=== PATIENT | male | born 1960 | race Caucasian/White ===

== ENCOUNTER 2023-03-20 19:38 | Emergency (ER) | payer MEDICARE, MEDICAID, SELFPAY ==
[2023-03-20] VITALS (7 sets, daily range): BP systolic 128–135; BP diastolic 86–100; PULSE 102–131; RESP 11–38; TEMP 36.2–36.4; O2SAT 95–97; BMI 22.1
[2023-03-20 20:07] LABS: Absolute Lymphocyte Count 1.02 X10^3/uL (0.83-4.51); Absolute Neutrophil Count 2.8 X10^3/uL (2.0-7.7); Basophil# 0.05 X10^3/uL; Eosinophil# 0.52 X10^3/uL; Eosinophils% 10.9 % (0-5); Hematocrit 35.6 % (40-54); Hemoglobin 11.3 g/dL (13.0-16.5); Lymphocyte # 1.02 X10^3/ul (0.83-4.51); Lymphocyte % 21.3 % (19-41); Mean Corp Hgb Conc 31.7 g/dL (32-36); Mean Corpuscular Hgb 26.1 pg (27.0-32.0); Mean Corpuscular Volume 82.2 fL (80-94); Mean Platelet Vol. 8.4 fl (6.2-12.0); Monocyte# 0.37 X10^3/uL; Monocyte% 7.7 % (0-10); NRBC Flagged by Analyzer 0 % (0-5); Neutrophil # 2.81 X10^3/uL (2.7-7.7); Neutrophil % 58.9 % (47-70); Platelet Count 197 K/mm3 (150-450); RBC Distribution Width CV 19.3 % (11.6-14.6); Red Blood Count 4.33 M/mm3 (4.6-6.2); White Blood Count 4.8 K/mm3 (4.4-11.0)
--- NOTE | 2023-03-20 20:10 | RAD_ITS ---
STUDY: X-RAY CHEST REASON FOR EXAM: Male, 62 years old. Chest pain TECHNIQUE: Single AP portable view of the chest. COMPARISON: None. FINDINGS: There are surgical clips in the left supraclavicular region. The lungs are clear and expanded. There is no demonstrated pleural abnormality. Normal size heart. Normal mediastinum and power. Normal visualized pulmonary arteries. There is atherosclerotic tortuosity of the aortic arch and descending thoracic aorta. Normal visualized thoracic spine. There are chronic upper rib and clavicle fractures. There is no demonstrated abnormality of the visualized soft tissue structures of the upper abdomen. RAD/Chest 1 View (Portable) IMPRESSION: Degenerative changes, as described above. No demonstrated acute cardiopulmonary process. Electronically Signed: Oskar Husain MD at 20:27 EDT ,
[2023-03-20 20:23] LABS: Anion Gap 6 (5-15); BUN 6 mg/dL (7-18); BUN/Creat Ratio 7.1 RATIO (10-20); Calcium,Total 8.6 mg/dL (8.5-10.1); Chloride 106 mmol/L (98-107); Creatinine, Serum 0.85 mg/dL (0.70-1.30); EST Glomerular Filtration Rate 96 mL/min (>60); Est Glom Filt Rate - Afr Amer 117 mL/min (>60); Estimated Creatinine Clearance 95.75 ml/min; Glucose 99 mg/dL (74-106); Potassium 3.2 mmol/L (3.5-5.1); Sodium Level 142 mmol/L (136-145); Troponin-I HS (w/2H Reflex) 11 pg/mL (3.0-78.0)
[2023-03-20 20:29] LABS: Prothrombin Time (Protime)PT. 13.2 SECONDS (11.7-14.9)
[2023-03-20] MEDS: Ipratropium/Albuterol Sulfate 3 ML AMPUL.NEB INHALATION (20:36)
[2023-03-20] MEDS: Morphine 4 MG/ML Syringe IV (20:56)
[2023-03-20] MEDS: Rivaroxaban 20 MG Tablet PO (21:16)
[2023-03-20] MEDS: clonazePAM 0.5 MG Tablet PO (21:16)
[2023-03-20 22:03] LABS: Reflex Troponin-HS? (from REC) Y
[2023-03-20 22:04] LABS: D-Dimer Quantitative (DVT/PE) 1.05 FEU/ug/m (0.27-0.49)
[2023-03-20 22:41] LABS: Troponin-I HS 10 pg/mL (3.0-78.0)
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
--- NOTE | 2023-03-20 23:16 | CT_ITS ---
STUDY: CTA CHEST REASON FOR EXAM: Male, 62 years old. Shortness of breath, elevated d-dimer RADIATION DOSAGE (If Supplied By Facility): CTDIvol = ( 14.29 ) mGy, DLP = ( 516.33 ) mGycm TECHNIQUE: The examination was performed with the intravenous administration of 100mL Isovue-370. Post-processing of the angiographic images was performed, with multiplanar reformation and 3D reconstruction. Individualized dose optimization techniques were used for this CT. COMPARISON: None. FINDINGS: Normal enhancement of the main pulmonary artery and right and left pulmonary arteries. Normal enhancement of the bilateral peripheral pulmonary arteries. There is no demonstrated pulmonary embolism. 3.5 cm ectasia ascending aorta. There is no demonstrated aortic dissection. Normal heart and pericardium. Normal mediastinum. Normal hilar regions. Tracheostomy defect at the thoracic inlet. Multiple adjacent surgical clips. Bibasilar dependent and/or fibrotic changes. No consolidations or mass lesions. No pleural effusion. Normal chest wall structures. No acute or aggressive osseous abnormality. No acute findings in the upper abdomen. CT/CTA Chest W/WO Contrast IMPRESSION: Normal CTA chest examination, without a demonstrated pulmonary embolism or arterial dissection. No acute pulmonary findings. Electronically Signed: Oscar Zepeda MD at 0:13 EDT ,
[2023-03-21] VITALS (9 sets, daily range): BP systolic 83–129; BP diastolic 68–96; PULSE 85–108; RESP 13–19; O2SAT 94–96
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
--- NOTE | 2023-03-21 02:19 | ED.RN ---
Pt daughter address for cab: [address] [place] [id number]
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
== END 2023-03-21 08:42 | disposition home or self-care (01) ==
PROVIDERS: Emergency Provider Emergency Medicine; Visit Provider Emergency Medicine
DX: R07.9 Chest pain, unspecified (principal); Z93.0 Tracheostomy status; R06.02 Shortness of breath; S81.801A Unspecified open wound, right lower leg, initial encounter; S81.802A Unspecified open wound, left lower leg, initial encounter; X58.XXXA Exposure to other specified factors, initial encounter; M54.2 Cervicalgia; R11.2 Nausea with vomiting, unspecified; R05.9 Cough, unspecified; Z59.00 Homelessness unspecified; Z87.891 Personal history of nicotine dependence
CPT/HCPCS: 31720; 71045; 71275; 80048; 84484; 85025; 85379; 85610; 87070; 87205; 87428; 93005; 94640; 96374; 99285; Q9967; A4216

== ENCOUNTER 2023-03-27 16:12 | Emergency (ER) | payer MEDICARE, MEDICAID, SELFPAY ==
[2023-03-27 16:14] VITALS: BP 107/79; PULSE 74; RESP 18; TEMP 36.6; O2SAT 96; BMI 25.7
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
--- NOTE | 2023-03-27 16:47 | CM.ED ---
Addendum entered by Breanna Lozano 03/27/23 20:04: SW attempted to make an appointment with [facility] as planned but due to patient being here late in the day, no one was available to schedule appointment. SW left a voicemail with [facility] and APS worker as well. Pt is historically non-compliant and uncooperative while a patient. Pt was verbally abusive to nursing staff. Pt also had denied alcohol use but was found to be intoxicated upon lab results. Hospital admission not necessary and patient is to follow-up with [facility]/APS. Breanna DELUCA, RECEPTIONIST NURSE Original Note: Social Work SW received call from Lee of APS this morning regarding patient coming to the ED. Pt has been non-compliant and APS has been involved. APS reports concerns regarding patient's leg wounds and being unable to sleep due to them. APS reports they are in contact with [facility] who is familiar with patient and requests SW to schedule a follow-up appointment with [facility] and they will arrange transportation for patient. Pt arrived later in the afternoon due to PD being called on patient for public drinking. Pt to be seen medically and social work will make arrangements for appointment if patient is discharged. Breanna DELUCA, RECEPTIONIST NURSE
[2023-03-27] MEDS: 0.9% Normal Saline 1,000 ML 999 ML IV (17:41)
[2023-03-27] MEDS: LORazepam 2 MG/ML Syringe 1 MG IV (17:47)
[2023-03-27 17:59] LABS: Absolute Lymphocyte Count 1.44 X10^3/uL (0.83-4.51); Absolute Neutrophil Count 3.1 X10^3/uL (2.0-7.7); Basophil# 0.07 X10^3/uL; Basophil% 1.3 % (0-1); Eosinophil# 0.45 X10^3/uL; Eosinophils% 8.2 % (0-5); Hematocrit 37.6 % (40-54); Hemoglobin 11.5 g/dL (13.0-16.5); Lymphocyte # 1.44 X10^3/ul (0.83-4.51); Lymphocyte % 26.2 % (19-41); Mean Corp Hgb Conc 30.6 g/dL (32-36); Mean Corpuscular Hgb 26.2 pg (27.0-32.0); Mean Corpuscular Volume 85.6 fL (80-94); Mean Platelet Vol. 9.5 fl (6.2-12.0); Monocyte% 7.3 % (0-10); NRBC Flagged by Analyzer 0 % (0-5); Neutrophil # 3.13 X10^3/uL (2.7-7.7); Neutrophil % 56.8 % (47-70); POSITIVE MORPHOLOGY YES; Platelet Count 235 K/mm3 (150-450); RBC Distribution Width CV 20.8 % (11.6-14.6); RBC Distribution Width SD 64.9 fl (35.1-43.9); Red Blood Count 4.39 M/mm3 (4.6-6.2); White Blood Count 5.5 K/mm3 (4.4-11.0)
[2023-03-27 18:01] LABS: Differential Indicated SCAN CRITERIA MET
[2023-03-27 18:12] LABS: ALB/GLOB Ratio 0.6 RATIO (0.9-2.4); AST(SGOT) 98 U/L (15-37); Alanine Aminotransfer ALT/SGPT 38 U/L (16-61); Albumin, Serum 3.2 g/dL (3.2-5.0); Alkaline Phosphatase 172 U/L (45-117); Anion Gap 5 (5-15); BUN 10 mg/dL (7-18); BUN/Creat Ratio 9.8 RATIO (10-20); Calcium,Total 8.5 mg/dL (8.5-10.1); Chloride 111 mmol/L (98-107); Creatinine, Serum 1.02 mg/dL (0.70-1.30); EST Glomerular Filtration Rate 78 mL/min (>60); Est Glom Filt Rate - Afr Amer 95 mL/min (>60); Glucose 82 mg/dL (74-106); Potassium 3.8 mmol/L (3.5-5.1); Protein, Total 8.2 g/dL (6.4-8.2); Sodium Level 140 mmol/L (136-145)
[2023-03-27 18:45] LABS: Anisocytosis 1+; Crenated RBC RARE; Differential Comment SCANNED; Ovalocyte RARE
--- NOTE | 2023-03-27 19:51 | ED.RN ---
This charge nurse was notified by primary nurse that patient was refusing to leave. This RN enters the room, patient is raising his fists at me. This RN offers to call a taxi, patient states he cannot afford one. Pt states he is staying with his daughter who does not have a car. Per PD and EMS patient walks around town all day long. Pt is refusing to walk out of department. Pt threw a bloody gauze piece at this RN and then refused to let me apply a bandage. HRO and security called to bedside. Patient was agreeable to get dressed and ambulate with police. Pt left department with HRO.
--- NOTE | 2023-03-27 19:53 | ED.RN ---
pt verbally abusive to this nurse and feels states he was not leaving. pt raising his fist and threatening.charge nurse rommel nuñez made aware and she spoke to him as well. diana duran involved.
[2023-03-27 19:55] VITALS: BP 152/60; PULSE 78; RESP 18
== END 2023-03-27 19:55 | disposition home or self-care (01) ==
PROVIDERS: Nurse Practitioner; Emergency Provider Emergency Medicine; Visit Provider Emergency Medicine
DX: F10.129 Alcohol abuse with intoxication, unspecified (principal); S81.802A Unspecified open wound, left lower leg, initial encounter; S81.801A Unspecified open wound, right lower leg, initial encounter; F17.210 Nicotine dependence, cigarettes, uncomplicated; Z59.00 Homelessness unspecified; X58.XXXA Exposure to other specified factors, initial encounter
CPT/HCPCS: 80053; 82077; 85025; 96361; 96374; 99285; A4216

== ENCOUNTER 2023-03-31 21:59 | Emergency (ER) | payer MEDICARE, MEDICAID, SELFPAY ==
[2023-03-31 22:00] VITALS: BP 125/91; PULSE 111; RESP 16; TEMP 35.9; O2SAT 96; BMI 26.2
[2023-03-31 22:02] VITALS: BP 125/91; PULSE 100; RESP 18; TEMP 35.9; O2SAT 96
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
--- NOTE | 2023-03-31 23:10 | RAD_ITS ---
INDICATION: shortness of breath EXAMINATION/TECHNIQUE: X-RAY - XR Chest 1 View COMPARISON: 03/20/2023. FINDINGS: LINES/DEVICES: None. LUNGS: No consolidation or evidence of an effusion. No evidence of edema or a pneumothorax. MEDIASTINUM AND CARDIOVASCULAR STRUCTURES: Cardiac silhouette is normal in size and contour. Mediastinum is unremarkable. BONES AND SOFT TISSUES: No acute abnormality. RAD/Chest 1 View (Portable) IMPRESSION: No evidence of acute cardiopulmonary disease. Electronically Signed: Suresh Frank DO at 23:22 EDT ,
--- NOTE | 2023-03-31 23:47 | ED.RN ---
Called and spoke to dispatch and Officer Mariana to assess ambulatory status due to pt stating he could not walk. They report pt was picked up at [facility] in [facility] and was ambulatory without difficulty and smoking a cigarette.
--- NOTE | 2023-03-31 23:54 | ED.RN ---
Attempted to speak to pt about finding a ride or needing a wheelchair to the door, he repeatedly yells at nurse get the fuck out, I can't walk, get the fuck out. Informed pt that this nurse spoke to officer and that he was ambulatory on scene, he again yells at nurse get the fuck out.
== END 2023-04-01 00:04 | disposition home or self-care (01) ==
PROVIDERS: Emergency Provider Emergency Medicine; Visit Provider Emergency Medicine
DX: R06.02 Shortness of breath (principal); Z93.0 Tracheostomy status; S81.801A Unspecified open wound, right lower leg, initial encounter; S81.802A Unspecified open wound, left lower leg, initial encounter; X58.XXXA Exposure to other specified factors, initial encounter; Z85.21 Personal history of malignant neoplasm of larynx; Z87.891 Personal history of nicotine dependence
CPT/HCPCS: 31720; 71045; 99284

== ENCOUNTER 2023-04-01 10:36 | Emergency (ER) | payer MEDICARE, MEDICAID, SELFPAY ==
[2023-04-01 10:37] VITALS: BP 148/110; PULSE 107; RESP 18; TEMP 36.7; O2SAT 99; BMI 23.3
[2023-04-01 10:59] VITALS: O2SAT 98
[2023-04-01 11:47] LABS: Absolute Lymphocyte Count 1.08 X10^3/uL (0.83-4.51); Absolute Neutrophil Count 2.9 X10^3/uL (2.0-7.7); Basophil# 0.12 X10^3/uL; Basophil% 2.4 % (0-1); Eosinophil# 0.58 X10^3/uL; Eosinophils% 11.4 % (0-5); Hematocrit 37.7 % (40-54); Hemoglobin 11.8 g/dL (13.0-16.5); Lymphocyte # 1.08 X10^3/ul (0.83-4.51); Lymphocyte % 21.2 % (19-41); Mean Corp Hgb Conc 31.3 g/dL (32-36); Mean Corpuscular Hgb 26.5 pg (27.0-32.0); Mean Corpuscular Volume 84.5 fL (80-94); Mean Platelet Vol. 9.1 fl (6.2-12.0); Monocyte# 0.38 X10^3/uL; Monocyte% 7.5 % (0-10); NRBC Flagged by Analyzer 0 % (0-5); Neutrophil # 2.93 X10^3/uL (2.7-7.7); Neutrophil % 57.3 % (47-70); POSITIVE MORPHOLOGY YES; Platelet Count 264 K/mm3 (150-450); RBC Distribution Width CV 21.7 % (11.6-14.6); RBC Distribution Width SD 66.3 fl (35.1-43.9); Red Blood Count 4.46 M/mm3 (4.6-6.2); White Blood Count 5.1 K/mm3 (4.4-11.0)
[2023-04-01 11:49] LABS: Differential Indicated SCAN CRITERIA MET
[2023-04-01 11:59] LABS: Anion Gap 10 (5-15); BUN 5 mg/dL (7-18); BUN/Creat Ratio 5.1 RATIO (10-20); Calcium,Total 8.3 mg/dL (8.5-10.1); Chloride 106 mmol/L (98-107); Creatinine, Serum 0.98 mg/dL (0.70-1.30); EST Glomerular Filtration Rate 82 mL/min (>60); Est Glom Filt Rate - Afr Amer 100 mL/min (>60); Estimated Creatinine Clearance 84.68 ml/min; Glucose 82 mg/dL (74-106); Potassium 3.9 mmol/L (3.5-5.1); Sodium Level 142 mmol/L (136-145)
[2023-04-01 12:12] LABS: Anisocytosis 1+
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
[2023-04-01 13:04] VITALS: RESP 24
[2023-04-01 13:18] VITALS: RESP 24
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
--- NOTE | 2023-04-04 21:07 | CM.ED ---
Social Work SW received a message from Romana of [facility] due to a referral. Romana reports they reached out to pt's daughter whom has not answered or returned any calls. Romana reports the referral will be closed. Breanna Lozano WOODWORKING MACHINE FEEDER, LEASING DIRECTOR
== END 2023-04-01 13:19 | disposition home or self-care (01) ==
PROVIDERS: Emergency Provider Emergency Medicine; Visit Provider Emergency Medicine
DX: R06.00 Dyspnea, unspecified (principal); Z93.0 Tracheostomy status; I48.91 Unspecified atrial fibrillation; S81.801A Unspecified open wound, right lower leg, initial encounter; S81.802A Unspecified open wound, left lower leg, initial encounter; Z87.891 Personal history of nicotine dependence; Z85.89 Personal history of malignant neoplasm of other organs and systems
CPT/HCPCS: 80048; 85025; 99284; A4216

== ENCOUNTER 2023-04-07 10:24 | Emergency (ER) | payer MEDICARE, MEDICAID, SELFPAY ==
[2023-04-07 10:26] VITALS: TEMP 36.5; BMI 22.9
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
== END 2023-04-07 11:31 | disposition home or self-care (01) ==
PROVIDERS: Emergency Provider Emergency Medicine; Visit Provider Emergency Medicine
DX: T18.108A Unspecified foreign body in esophagus causing other injury, initial encounter (principal); I48.91 Unspecified atrial fibrillation; Z87.891 Personal history of nicotine dependence; Z79.01 Long term (current) use of anticoagulants; X58.XXXA Exposure to other specified factors, initial encounter
CPT/HCPCS: 99284

== ENCOUNTER 2023-05-02 12:19 | Emergency (ER) | payer MEDICARE, MEDICAID, SELFPAY ==
[2023-05-02 12:20] VITALS: BP 132/88; PULSE 71; RESP 16; TEMP 36.2; O2SAT 94; BMI 21.6
--- NOTE | 2023-05-02 13:29 | ED.RN ---
PT out at nurses desk, assist pt back to room and set up suction. per pt request attempted to suction with griselda with little results. pt breathing even and unlabored. After several attempts pt consented to RTT being called to assist with deep suction. RTT at bedside assisting pt. call light within reach.
--- NOTE | 2023-05-02 13:37 | ED.RN ---
PT out in hallway almost walked into wrong room. staff attempted to assist back to correct room, pt refused. pt walked out to nurses station, again staff asked pt to return to room. PT left unit currently waiting on cab. charge nurse updated.
== END 2023-05-02 13:35 | disposition left against medical advice (07) ==
PROVIDERS: PCP Nurse Practitioner Family
DX: Z53.21 Procedure and treatment not carried out due to patient leaving prior to being seen by health care provider (principal)
CPT/HCPCS: 99284; A4216

== ENCOUNTER 2023-07-04 15:50 | Inpatient (IN) | payer MEDICARE, MEDICAID, SELFPAY ==
[2023-07-04] VITALS (8 sets, daily range): BP systolic 110–129; BP diastolic 81–96; PULSE 60–120; RESP 16–20; TEMP 36.3–37.2; O2SAT 94–97; BMI 23.3; BMI 21.4
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
[2023-07-04] MEDS: 0.9% Normal Saline (1000mL) 1,000 ML 150 ML IV ×2 (17:06→21:27)
[2023-07-04] MEDS: Ondansetron 4 MG/2 ML Vial IV (17:07)
[2023-07-04] MEDS: Morphine 4 MG/ML Syringe IV (17:07)
[2023-07-04] MEDS: levoFLOXacin IV 750 MG/150 ML BAG 100 MG IV (17:19)
[2023-07-04 17:31] LABS: Absolute Neutrophil Count 6.4 X10^3/uL (2.0-7.7); Basophil# 0.07 X10^3/uL; Basophil% 0.8 % (0-1); Eosinophil# 0.07 X10^3/uL; Eosinophils% 0.8 % (0-5); Hemoglobin 12.3 g/dL (13.0-16.5); Mean Corp Hgb Conc 33.2 g/dL (32-36); Mean Corpuscular Hgb 32.8 pg (27.0-32.0); Mean Corpuscular Volume 98.7 fL (80-94); Mean Platelet Vol. 9.1 fl (6.2-12.0); Monocyte# 0.79 X10^3/uL; NRBC Flagged by Analyzer 0 % (0-5); Neutrophil # 6.41 X10^3/uL (2.7-7.7); Neutrophil % 73.2 % (47-70); Platelet Count 235 K/mm3 (150-450); RBC Distribution Width CV 15.2 % (11.6-14.6); RBC Distribution Width SD 54.4 fl (35.1-43.9); Red Blood Count 3.75 M/mm3 (4.6-6.2); White Blood Count 8.8 K/mm3 (4.4-11.0)
[2023-07-04 17:42] LABS: Anion Gap 8 (5-15); BUN 10 mg/dL (7-18); BUN/Creat Ratio 9.5 RATIO (10-20); Calcium,Total 8.9 mg/dL (8.5-10.1); Chloride 95 mmol/L (98-107); Creatinine, Serum 1.05 mg/dL (0.70-1.30); EST Glomerular Filtration Rate 76 mL/min (>60); Est Glom Filt Rate - Afr Amer 92 mL/min (>60); Estimated Creatinine Clearance 79.04 ml/min; Glucose 79 mg/dL (74-106); Potassium 4.2 mmol/L (3.5-5.1); Sodium Level 131 mmol/L (136-145)
--- NOTE | 2023-07-04 17:58 | RAD_ITS ---
STUDY: X-RAY - LEFT TIBIA AND FIBULA REASON FOR EXAM: Male, 62 years old. wounds to shins TECHNIQUE: 2 view(s) of the tibia and fibula were obtained. COMPARISON: None. FINDINGS: Normal visualized tibia. Normal visualized fibula. Defect in the anterior soft tissues consistent with the known wound. There is some periosteal reaction of the lateral cortex of the adjacent mid shaft of the tibia and osteomyelitis cannot be excluded. MRI may be useful. RAD/Tibia & Fibula 2 Views IMPRESSION: Known wound of the anterior soft tissues with possible osteomyelitis of the tibia. MRI may be useful for Electronically Signed: Kenan Maldonado MD at 18:23 EST ,
--- NOTE | 2023-07-04 17:58 | RAD_ITS ---
STUDY: X-RAY - RIGHT TIBIA AND FIBULA REASON FOR EXAM: Male, 62 years old. CELLULITIS TECHNIQUE: 2 view(s) of the tibia and fibula were obtained. COMPARISON: None. FINDINGS: Defect of the anterior soft tissues consistent with the known wound. There is periosteal reaction of the adjacent shaft of the tibia and fibula which may represent osteomyelitis. MRI may be useful. RAD/Tibia & Fibula 2 Views IMPRESSION: Known wound of the anterior soft tissues with possible osteomyelitis of the shaft of the tibia and fibula. MRI may be useful. Electronically Signed: Kenan Maldonado MD at 18:25 EST ,
[2023-07-04 18:11] LABS: Lactic Acid 4.7 mmol/L (0.4-1.9)
[2023-07-04 18:44] LABS: Probe Check PASS; Staph aureus DNA By PCR POSITIVE (Negative)
[2023-07-04 18:47] LABS: M R Staph aureus DNA By PCR POSITIVE (Negative)
[2023-07-04] MEDS: Vancomycin HCl 1,250 MG in 0.9% Normal Saline (250mL Bag) 250 ML 167 MG IV (19:13)
[2023-07-04] MEDS: LORazepam 2 MG/ML Syringe 1 MG IV (19:21)
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
--- NOTE | 2023-07-04 20:35 | PCM.RX.CS ---
Consult Antibiotic Management Pharmacy has been consulted to manage selected antiobiotic: Vancomycin Type of Intervention Type of Consult: New start Suspected Infection Suspected Infection: Skin/Soft tissue Labs Labs: Sodium 131 mmol/L (136-145) L 07/04/23 17:00 Potassium 4.2 mmol/L (3.5-5.1) 07/04/23 17:00 Chloride 95 mmol/L (98-107) L 07/04/23 17:00 Carbon Dioxide 28.0 mmol/L (21.0-32.0) 07/04/23 17:00 Anion Gap 8 (5-15) 07/04/23 17:00 BUN 10 mg/dL (7-18) 07/04/23 17:00 Creatinine 1.05 mg/dL (0.70-1.30) 07/04/23 17:00 Est GFR (MDRD) Af Amer 92 mL/min (>60) 07/04/23 17:00 Est GFR (MDRD) Non-Af 76 mL/min (>60) 07/04/23 17:00 BUN/Creatinine Ratio 9.5 RATIO (10-20) L 07/04/23 17:00 Glucose 79 mg/dL (74-106) 07/04/23 17:00 Pharmacy Plan for Drug Dosing Pharmacy Plan for Drug Dosing: NEW START IV VANCOMYCIN Consulting Physician: May AGUILAR Indication: CELLULITIS Goal Trough: 10-15 MG/DL SrCr: 1.05 MG/DL CrCl: 79 ML/MIN Comments: ER DOSE OF 1250MG GIVEN 07/04 @ 1913 Vancomycin Dose: WILL START 750MG Q12 AND GET A TROUGH PRIOR TO 4TH TOTAL DOSE PER POLICY Pending Level: 07/06/23 @ 0630 Pharmacy Service will continue to monitor and adjust dosing as required.
[2023-07-04 21:20] LABS: Reflex Lactate? Y
[2023-07-04] MEDS: 0.9% Normal Saline (500mL Bag) 500 ML IV (21:27)
[2023-07-04 22:33] LABS: Lactic Acid 3.1 mmol/L (0.4-1.9)
[2023-07-04] MEDS: oxyCODONE 5 MG Tablet PO (22:39)
[2023-07-04] MEDS: Metoprolol Tartrate 25 MG Tablet PO (22:41)
[2023-07-05] VITALS (13 sets, daily range): BP systolic 84–147; BP diastolic 66–104; PULSE 93–124; RESP 16–20; TEMP 36.3–37; O2SAT 91–98
[2023-07-05] MEDS: oxyCODONE 5 MG Tablet PO (03:22)
[2023-07-05] MEDS: clonazePAM 1 MG Tablet PO ×3 (04:02→20:10)
[2023-07-05] MEDS: 0.9% Normal Saline (1000mL) 1,000 ML 150 ML IV ×3 (04:02→20:10)
[2023-07-05] MEDS: Vancomycin HCl 750 MG in 0.9% Normal Saline (250mL Bag) 250 ML 250 MG IV ×2 (04:02→18:35)
[2023-07-05] MEDS: oxyCODONE 5 MG Tablet 10 MG PO ×5 (08:24→23:33)
--- NOTE | 2023-07-05 08:31 | PN.HOSP_ITS ---
Reason for Visit Reason for Visit: Diagnoses Cellulitis of unspecified part of limb (07/04/23) Subjective Subjective Patient is a 62-year-old gentleman with multiple comorbidities who presented with bilateral lower extremity wounds with surrounding areas of erythema and warmth consistent with cellulitis admitted to regular nursing floor for further management Objective Data Objective Data Vital Signs: Vital Signs Temp Pulse Resp BP Pulse Ox O2 Del Method 97.4 F L 109 H 18 108/71 95 Room Air 07/05/23 08:05 07/05/23 08:05 07/05/23 08:05 07/05/23 08:05 07/05/23 08:05 07/05/23 08:05 Oxygen Delivery Method Room Air Weight: 73.5 kg Body Mass Index (BMI) 21.4 Intake & Output: Intake and Output for Last 24 Hours 07/03/23 07/04/23 07/05/23 23:59 23:59 23:59 Intake Total 2077.5 / 2077.5 1752.5 / 1752.5 Output Total 400 / 400 Balance 2077.5 / 2077.5 1352.5 / 1352.5 Lab / Micro Data 07/05/23 09:45 07/05/23 09:45 Labs: Laboratory Results - last 24 hr 07/04/23 16:54: S.aureus Protein A PCR POSITIVE H, MRSA (PCR) POSITIVE H 07/04/23 17:00: WBC 8.8, RBC 3.75 L, Hgb 12.3 L, Hct 37.0 L, MCV 98.7 H, MCH 32.8 H, MCHC 33.2, RDW Std Deviation 54.4 H, RDW Coeff of Allen 15.2 H, Plt Count 235, MPV 9.1, Immature Gran % (Auto) 0.200, Neut % (Auto) 73.2 H, Lymph % (Auto) 16.0 L, [place] % (Auto) 9.0, Eos % (Auto) 0.8, Baso % (Auto) 0.8, Absolute Neuts (auto) 6.4, Absolute Lymphs (auto) 1.40, Nucleated RBC % 0, Sodium 131 L, Potassium 4.2, Chloride 95 L, Carbon Dioxide 28.0, Anion Gap 8, BUN 10, Creatinine 1.05, Estim Creat Clear Calc 79.04, Est GFR (MDRD) Af Amer 92, Est GFR (MDRD) Non-Af 76, BUN/Creatinine Ratio 9.5 L, Glucose 79, Lactic Acid 4.7 H* , Calcium 8.9 07/04/23 21:33: Lactic Acid 3.1 H* Radiography Diagnostic Testing: Radiology Impression Tibia/Fibula X-Ray 07/04/23 17:58 IMPRESSION: Known wound of the anterior soft tissues with possible osteomyelitis of the tibia. MRI may be useful for Electronically Signed: Kenan Maldonado MD at 18:23 EST , Tibia/Fibula X-Ray 07/04/23 17:58 IMPRESSION: Known wound of the anterior soft tissues with possible osteomyelitis of the shaft of the tibia and fibula. MRI may be useful. Electronically Signed: Kenan Maldonado MD at 18:25 EST , Physical Exam Narrative GENERAL: cooperative HEENT: Atraumatic; trach collar in place EYES; Anicteric, Normal Conjunctiva NECK; supple, normal thyroid, RESPIRATORY: Diminished to auscultation CARDIOVASCULAR: Regular S1 S2, GI: soft, normoactive bowel sounds, : No Renal angle tenderness; EXTREMITIES: Areas of ulceration both lower extremities mid tibia MUSCULOSKELETAL: no muscle wasting NEURO: Awake; no lateralizing signs. SKIN: As described above PSYCH; Flat affect Assessment & Plan Assessment/Plan (1) Cellulitis of lower limb: PLAN: Plan Patient is a 62-year-old gentleman with multiple comorbidities who presented with bilateral lower extremity wounds with surrounding areas of erythema and warmth consistent with cellulitis admitted to regular nursing floor for further management 1. Sepsis ? Present on admission evidenced by presence of an infection cellulitis with 2 SIRS criteria, tachypnea and tachycardia and evidence of endorgan dysfunction hypotension lactic acidosis treatment initiated per protocol with IV fluid resuscitation as well as broad-spectrum antibiotic therapy after cultures have been sent 2. Chronic lower extremity wounds with surrounding areas of cellulitis ? Patient admitted to regular nursing floor MRSA swab came back positive patient subsequently started on vancomycin as well as Levaquin with consultation placed to infectious disease as well as wound care nurse 3. History of laryngeal CA ? Status post laryngectomy 4. Paroxysmal A-fib ? Rate controlled on systemic anticoagulation with rivaroxaban 5. Anemia - Secondary to chronic disorder monitoring H&H and transfuse if patient becomes symptomatic or hemoglobin falls below 7 6. Hyponatremia ? Secondary to hypovolemic hyponatremia Patient being resuscitated with IV fluid with subsequent monitoring of electrolytes ordered 7. DVT prophylaxis ? Patient is on rivaroxaban Time spent in the patient's overall evaluation,decision-making process, review of diagnostic data, adjustment of management, discussion with other providers, nursing nursing and ancillary staff involved in patient's care documentation, 55 Minutes Advance planning; did discuss with the patient and family regarding advanced directives as well as CODE STATUS. Did explain the various scenarios involved ( FULL CODE, DNR CCA, DNR CCA with no intubation, and DNR CC and what each meant) patient elected remain full code with CPR and intubation if needed. Order was placed. Time spent on discussion 18 minutes. Sepsis Attestation Sepsis Attestation: Agree w/Sepsis Date exam was performed: 07/05/23 Time exam was performed: 08:50 Possible Source of Sepsis: Skin/soft tissue Sepsis Organ Dysfunction Criteria Present: SBP < 90 mmHg or MAP < 65 mmHg and Lactic Acid > 2 mmol/L Fluid Resuscitation Fluid resuscitation indicated?: Yes Fluid Resuscitation ordered: 30 ml/kg fluid bolus ordered Amount of fluid ordered: 2,220 Charges/Coding Visit Charges Inpatient E&M: 62558 Subs Hosp L3 Procedures Hospitalists Procedures: 02911 Advncd Care Plan 30 Min
[2023-07-05 10:13] LABS: Absolute Lymphocyte Count 1.13 X10^3/uL (0.83-4.51); Absolute Neutrophil Count 2.7 X10^3/uL (2.0-7.7); Basophil# 0.09 X10^3/uL; Basophil% 1.8 % (0-1); Eosinophil# 0.76 X10^3/uL; Eosinophils% 14.9 % (0-5); Hematocrit 33.6 % (40-54); Hemoglobin 10.6 g/dL (13.0-16.5); Lymphocyte # 1.13 X10^3/ul (0.83-4.51); Lymphocyte % 22.2 % (19-41); Mean Corp Hgb Conc 31.5 g/dL (32-36); Mean Corpuscular Volume 104.7 fL (80-94); Mean Platelet Vol. 9.2 fl (6.2-12.0); Monocyte# 0.44 X10^3/uL; Monocyte% 8.6 % (0-10); NRBC Flagged by Analyzer 0 % (0-5); Neutrophil # 2.66 X10^3/uL (2.7-7.7); Neutrophil % 52.1 % (47-70); Platelet Count 183 K/mm3 (150-450); RBC Distribution Width CV 15.2 % (11.6-14.6); Red Blood Count 3.21 M/mm3 (4.6-6.2); White Blood Count 5.1 K/mm3 (4.4-11.0)
[2023-07-05 10:24] LABS: International Normalized Ratio 1.2; Prothrombin Time (Protime)PT. 14.8 SECONDS (11.7-14.9)
[2023-07-05] MEDS: levoFLOXacin IV 750 MG/150 ML BAG 100 MG IV (11:06)
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
[2023-07-05 11:57] LABS: ALB/GLOB Ratio 0.4 RATIO (0.9-2.4); AST(SGOT) 36 U/L (15-37); Alanine Aminotransfer ALT/SGPT 13 U/L (16-61); Albumin, Serum 2.2 g/dL (3.2-5.0); Alkaline Phosphatase 120 U/L (45-117); Anion Gap 7 (5-15); BUN 8 mg/dL (7-18); BUN/Creat Ratio 8.7 RATIO (10-20); Bilirubin, Direct 0.29 mg/dL (0.00-0.30); Calcium,Total 7.4 mg/dL (8.5-10.1); Chloride 106 mmol/L (98-107); Creatinine, Serum 0.92 mg/dL (0.70-1.30); EST Glomerular Filtration Rate 88 mL/min (>60); Est Glom Filt Rate - Afr Amer 107 mL/min (>60); Estimated Creatinine Clearance 85.44 ml/min; Glucose 81 mg/dL (74-106); Magnesium 1.7 mg/dL (1.6-2.6); Phosphorus 2.1 mg/dL (2.5-4.9); Potassium 4.3 mmol/L (3.5-5.1); Protein, Total 7.2 g/dL (6.4-8.2); Sodium Level 135 mmol/L (136-145)
[2023-07-05] MEDS: Lactated Ringers 1,000 ML 999 ML IV ×3 (12:26→15:07)
--- NOTE | 2023-07-05 13:29 | NURSING ---
Patient refusing to have second IV placed per orders
[2023-07-05 13:39] LABS: Lactic Acid 2.2 mmol/L (0.4-1.9)
--- NOTE | 2023-07-05 13:54 | CPS ---
pt placed on nurses continuous pulse ox
[2023-07-05] MEDS: Ensure Plus High Protein 120 ML LIQUID PO (17:03)
[2023-07-05 17:06] LABS: Reflex Lactate? Y
[2023-07-05] MEDS: Rivaroxaban 2.5 MG Tablet PO (18:20)
[2023-07-05] MEDS: HYDROmorphone 1 MG/ML Syringe IV (18:43)
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
[2023-07-05] MEDS: Metoprolol Tartrate 25 MG Tablet PO (20:10)
--- NOTE | 2023-07-05 23:03 | PCA ---
assisted patient to the restroom.
[2023-07-06] MEDS: clonazePAM 1 MG Tablet PO ×3 (01:51→20:20)
[2023-07-06] MEDS: HYDROmorphone 0.5 MG/0.5 ML SYRINGE 0.2 MG IV (01:53)
[2023-07-06 03:00] VITALS: BP 131/90; PULSE 108; RESP 18; TEMP 36.9; O2SAT 94
[2023-07-06] MEDS: oxyCODONE 5 MG Tablet 10 MG PO ×4 (05:15→20:20)
[2023-07-06] MEDS: 0.9% Normal Saline (1000mL) 1,000 ML 150 ML IV ×2 (05:16→20:19)
--- NOTE | 2023-07-06 08:18 | PCM.PN.HOSP ---
Reason for Visit Reason for Visit: Diagnoses Cellulitis of unspecified part of limb (07/04/23) Subjective Subjective Patient wound cultures so far positive for Pseudomonas, MRSA and beta Streptococcus. Patient remains on vancomycin and Levaquin. An order was given for PICC line placement with consultation placed to ID Objective Data Objective Data Vital Signs: Vital Signs Temp Pulse Resp BP Pulse Ox O2 Del Method 98.4 F 108 H 18 131/90 H 94 Room Air 07/06/23 03:00 07/06/23 03:00 07/06/23 03:00 07/06/23 03:00 07/06/23 03:00 07/06/23 03:00 Oxygen Delivery Method Room Air Weight: 73.5 kg Body Mass Index (BMI) 21.4 Intake & Output: Intake and Output for Last 24 Hours 07/04/23 07/05/23 07/06/23 23:59 23:59 23:59 Intake Total 2077.5 / 2077.5 7185.0 / 7685.0 1999 Output Total 1400 / 1400 Balance 2077.5 / 2077.5 5785.0 / 6285.0 1999 Lab / Micro Data 07/05/23 09:45 07/05/23 09:45 Labs: Laboratory Results - last 24 hr 07/05/23 09:45: WBC 5.1, RBC 3.21 L, Hgb 10.6 L, Hct 33.6 L, MCV 104.7 H D, MCH 33.0 H, MCHC 31.5 L D, RDW Std Deviation 58.0 H, RDW Coeff of Allen 15.2 H, Plt Count 183, MPV 9.2, Immature Gran % (Auto) 0.400, Neut % (Auto) 52.1, Lymph % (Auto) 22.2, [place] % (Auto) 8.6, Eos % (Auto) 14.9 H, Baso % (Auto) 1.8 H, Absolute Neuts (auto) 2.7, Absolute Lymphs (auto) 1.13, Nucleated RBC % 0, PT 14.8, INR 1.2, Sodium 135 L, Potassium 4.3, Chloride 106, Carbon Dioxide 22.0, Anion Gap 7, BUN 8, Creatinine 0.92, Estim Creat Clear Calc 85.44, Est GFR (MDRD) Af Amer 107, Est GFR (MDRD) Non-Af 88, BUN/Creatinine Ratio 8.7 L, Glucose 81, Calcium 7.4 L, Phosphorus 2.1 L, Magnesium 1.7, Total Bilirubin 0.70, Direct Bilirubin 0.29, AST 36, ALT 13 L, Alkaline Phosphatase 120 H, Total Protein 7.2, Albumin 2.2 L, Globulin 5.0 H, Albumin/Globulin Ratio 0.4 L, TSH 146.00 H 07/05/23 12:58: Lactic Acid 2.2 H* Micro: Microbiology 07/04/23 16:54 Wound - Leg Gram Stain - Final 07/04/23 16:54 Wound - Leg Wound Culture - Preliminary Pseudomonas aeruginosa Meth. resistant Staph. aureus Beta streptococcus Physical Exam Narrative GENERAL: cooperative HEENT: Atraumatic; trach collar in place EYES; Anicteric, Normal Conjunctiva NECK; supple, normal thyroid, RESPIRATORY: Diminished to auscultation CARDIOVASCULAR: Regular S1 S2, GI: soft, normoactive bowel sounds, : No Renal angle tenderness; EXTREMITIES: Areas of ulceration both lower extremities mid tibia MUSCULOSKELETAL: no muscle wasting NEURO: Awake; no lateralizing signs. SKIN: As described above PSYCH; Flat affect Assessment & Plan Assessment/Plan (1) Cellulitis of lower limb: QUALIFIERS: Laterality: unspecified laterality Qualified Code(s): L03.119 - Cellulitis of unspecified part of limb PLAN: Plan Patient is a 62-year-old gentleman with multiple comorbidities who presented with bilateral lower extremity wounds with surrounding areas of erythema and warmth consistent with cellulitis admitted to regular nursing floor for further management 1. Sepsis ? Present on admission evidenced by presence of an infection cellulitis with 2 SIRS criteria, tachypnea and tachycardia and evidence of endorgan dysfunction hypotension lactic acidosis treatment initiated per protocol with IV fluid resuscitation as well as broad-spectrum antibiotic therapy after cultures have been sent ?Patient wound cultures so far positive for Pseudomonas, MRSA and beta Streptococcus. Patient remains on vancomycin and Levaquin. An order was given for PICC line placement with consultation placed to ID 2. Chronic lower extremity wounds with surrounding areas of cellulitis ? Patient admitted to regular nursing floor MRSA swab came back positive patient subsequently started on vancomycin as well as Levaquin with consultation placed to infectious disease as well as wound care nurse 3. History of laryngeal CA ? Status post laryngectomy 4. Paroxysmal A-fib ? Rate controlled on systemic anticoagulation with rivaroxaban 5. Anemia - Secondary to chronic disorder monitoring H&H and transfuse if patient becomes symptomatic or hemoglobin falls below 7 6. Hyponatremia ? Secondary to hypovolemic hyponatremia Patient being resuscitated with IV fluid with subsequent monitoring of electrolytes ordered 7. DVT prophylaxis ? Patient is on rivaroxaban Time spent in the patient's overall evaluation,decision-making process, review of diagnostic data, adjustment of management, discussion with other providers, nursing nursing and ancillary staff involved in patient's care documentation, 50 Minutes Charges/Coding Visit Charges Inpatient E&M: 01276 Subs Hosp L3
--- NOTE | 2023-07-06 08:18 | NURSING ---
Pt refusing to wear heart monitor. Educated on risks of it being doctors order. Pt verbalized understanding and states he will refuse. Will reassess later
[2023-07-06 09:31] VITALS: BP 83/68; PULSE 99; RESP 18; TEMP 36.6; O2SAT 94
[2023-07-06 09:31] LABS: Vancomycin, Trough Level 15.8 ug/mL (5.0-15.0)
[2023-07-06 09:36] LABS: Lactic Acid 1.2 mmol/L (0.4-1.9)
[2023-07-06 09:40] VITALS: BP 83/68
[2023-07-06] MEDS: Ensure Plus High Protein 120 ML LIQUID PO ×4 (09:40→20:20)
--- NOTE | 2023-07-06 10:11 | PCM.RX.CS ---
Consult Antibiotic Management Pharmacy has been consulted to manage selected antiobiotic: Vancomycin Type of Intervention Type of Consult: Follow-up Suspected Infection Suspected Infection: Skin/Soft tissue Prior Doses of Antibiotics Prior Doses of Antibiotics Received/Current Regimen: Vancomycin 750 mg q12h given 07/05 @ 0402, and 07/05 @ 1835 Labs Labs: Sodium 135 mmol/L (136-145) L 07/05/23 09:45 Potassium 4.3 mmol/L (3.5-5.1) 07/05/23 09:45 Chloride 106 mmol/L (98-107) 07/05/23 09:45 Carbon Dioxide 22.0 mmol/L (21.0-32.0) 07/05/23 09:45 Anion Gap 7 (5-15) 07/05/23 09:45 BUN 8 mg/dL (7-18) 07/05/23 09:45 Creatinine 0.92 mg/dL (0.70-1.30) 07/05/23 09:45 Est GFR (MDRD) Af Amer 107 mL/min (>60) 07/05/23 09:45 Est GFR (MDRD) Non-Af 88 mL/min (>60) 07/05/23 09:45 BUN/Creatinine Ratio 8.7 RATIO (10-20) L 07/05/23 09:45 Glucose 81 mg/dL (74-106) 07/05/23 09:45 Vancomycin Trough 15.8 ug/mL (5.0-15.0) H 07/06/23 09:05 Microbiology Microbiology: Microbiology 07/04/23 16:54 Wound - Leg Gram Stain - Final 07/04/23 16:54 Wound - Leg Wound Culture - Preliminary Pseudomonas aeruginosa Meth. resistant Staph. aureus Beta streptococcus Dosing Weight Weight used for dosin.5 kg Estimated Creatinine Clearance Estimated Creatinine Clearance: ~85 Goal Trough Goal Trough: 10-15 mcg/mL Pharmacy Plan for Drug Dosing Pharmacy Plan for Drug Dosing: Vancomycin trough this morning @ 09 was 15.8, this was drawn ~ 2.5 hours late as the patient had initially refused blood draws earlier this morning. Still as the trough is high will reduce dose to 500 mg Q12H. Pharmacy Service will continue to monitor and adjust dosing as required. Follow-Up Labs Follow-Up Labs: Trough: Vancomycin Date/Time Labs Ordered Labs to be done on [date and time ordered]: 07/07/23 @ 6278
[2023-07-06] MEDS: levoFLOXacin IV 750 MG/150 ML BAG 100 MG IV (10:25)
--- NOTE | 2023-07-06 10:44 | NURSING ---
Pt requesting for suction, RN provided pt threw equipment back at nurse and swung. RN got sterile suction equipment and offered to sterile suction trach pt refused, also offered to clean and wrap wounds on Bilateral lower extremities pt refusing.
[2023-07-06 11:30] VITALS: BP 91/74; PULSE 84; RESP 18; TEMP 36.6; O2SAT 95
[2023-07-06] MEDS: Vancomycin IV 500 MG/100 ML BAG 100 MG IV ×2 (12:41→22:01)
--- NOTE | 2023-07-06 16:57 | NURSING ---
Pt refusing vitals signs to be taken this PM, educated on importance of need to monitor
--- NOTE | 2023-07-06 18:12 | NURSING ---
Reassessed pt situation to check vital signs, pt continues to refuse vital signs to be checked
[2023-07-06 20:03] VITALS: BP 97/73; PULSE 86; RESP 16; TEMP 36.6; O2SAT 96
--- NOTE | 2023-07-06 20:15 | NURSING ---
Pt allowed this nurse to provide wound care for bilateral legs. This nurse cleansed with Sterile saline applied adaptic, ABD, and wrapped with gauze. Patient also allowed this nurse to get his vitals. This nurse warmed up patients food and patient thanked this nurse for my care.
[2023-07-06] MEDS: MELATONIN 3 MG TABLET PO (20:20)
[2023-07-06 22:01] VITALS: BP 92/65; PULSE 90
[2023-07-07] VITALS (8 sets, daily range): BP systolic 91–104; BP diastolic 56–90; PULSE 65–107; RESP 16–96; TEMP 36.1–36.6; O2SAT 95–96
[2023-07-07] MEDS: 0.9% Normal Saline (1000mL) 1,000 ML 150 ML IV ×3 (03:00→14:08)
[2023-07-07] MEDS: oxyCODONE 5 MG Tablet 10 MG PO ×3 (03:18→14:07)
[2023-07-07] MEDS: clonazePAM 1 MG Tablet PO ×2 (05:21→14:07)
[2023-07-07] MEDS: Vancomycin IV 500 MG/100 ML BAG 100 MG IV (10:07)
[2023-07-07] MEDS: Metoprolol Tartrate 25 MG Tablet PO (10:29)
[2023-07-07] MEDS: Ensure Plus High Protein 120 ML LIQUID PO ×3 (10:29→21:12)
[2023-07-07] MEDS: levoFLOXacin IV 750 MG/150 ML BAG 100 MG IV (10:29)
--- NOTE | 2023-07-07 11:03 | CASEMGMT ---
SW met with patient. Introduced self and role at [facility]. SW asked patient which part of [place]. [place]. Patient said he has the SNF list and will review it today. Patient will not qualify for intermediate based on PT/OT, however he could qualify based on the IV antibiotics depending on how often the antibiotics are to be given. Patient also has [facility] Medicaid in the event patient's [place] does not approve patient. Melanie Samuels CARD RUNNERHalle ARROYO
--- NOTE | 2023-07-07 11:09 | NURSING ---
Pt refusing to have venous duplex of legs completed. Dr. Carolina notified.
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
[2023-07-07] MEDS: Cefepime HCl 2 GM in 0.9% Normal Saline (100mL MB+) 100 ML IV ×2 (14:08→22:42)
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
--- NOTE | 2023-07-07 14:59 | ART_ITS ---
Reason For Study: BLE Ulcers Procedure A bilateral lower extremity continuous wave Doppler with analog waveform analysis,segmental pressures,and ankle brachial indexes without exercise. Left Segmental Pressures Left posterior tibial artery = 124mmHg. Left dorsalis pedis artery = 113mmHg. Left digit = 68 mmHg. The left dorsalis pedis waveforms are triphasic. The left posterior tibial artery waveforms are triphasic. Right Segmental Pressures Right brachial= 98mmHg. Right posterior tibial artery = 126mmHg. Right dorsalis pedis artery = 118mmHg. Right digit = 77 mmHg. The right dorsalis pedis waveforms are triphasic. The right posterior tibial artery waveforms are triphasic. Indices The right ankle brachial index by the dorsalis pedis is 1.20. The right ankle brachial index by the posterior tibial artery is 1.29. The right digital-brachial index is 0.79. The left ankle brachial index by the dorsalis pedis is 1.15. The left ankle brachial index by the posterior tibial artery is 1.27. The left digital-brachial index is 0.69. VL/Lower Ext Art Exam w/o Exercis Interpretation Summary Right LEANNE 1.29, normal. Doppler/PVR waveforms of the right leg normal at rest. TBI diminished, pedal/digit disease vs spasm. Left LEANNE 1.27, normal. Doppler/PVR waveforms of the left leg normal at rest. TB I diminished, pedal/digit disease vs spasm Ordering Physician: Auide Paz Referring Physician: Griffin Soria Performed By: Romana Shook RVT
--- NOTE | 2023-07-07 14:59 | CASEMGMT ---
SW received a call from Vishal with Adult Protective Services. Vishal said she is no longer active with patient. Patient does have a Direction Home Hi Lift Operator, Romana Jasso. Melanie Samuels FILTER FILLER DINA
--- NOTE | 2023-07-07 15:34 | WOUNDNOTE ---
wound photo: left lower leg
--- NOTE | 2023-07-07 15:34 | WOUNDNOTE ---
wound photo: right lower leg
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
[2023-07-07] MEDS: MELATONIN 10 MG TABLET PO (21:08)
[2023-07-07] MEDS: Levothyroxine 50 MCG Tablet PO (21:09)
[2023-07-07] MEDS: HYDROmorphone 1 MG/ML Syringe IV (21:09)
[2023-07-07 22:47] LABS: Vancomycin, Trough Level 18.4 ug/mL (5.0-15.0)
[2023-07-07 22:50] LABS: T4 Free Direct 0.38 ng/dL (0.76-1.46)
[2023-07-07 23:16] LABS: HIV - WCH Non-Reactive (Nonreactive)
[2023-07-08] VITALS (7 sets, daily range): BP systolic 85–110; BP diastolic 65–90; PULSE 64–100; RESP 16–18; TEMP 36.3–36.6; O2SAT 93–99
[2023-07-08] MEDS: Vancomycin IV 500 MG/100 ML BAG 100 MG IV ×3 (00:26→22:10)
[2023-07-08] MEDS: Vancomycin Trough/Random Due 1 LAB MC (00:28)
--- NOTE | 2023-07-08 00:46 | PCM.RX.CS ---
Consult Antibiotic Management Pharmacy has been consulted to manage selected antiobiotic: Vancomycin Type of Intervention Type of Consult: Follow-up Suspected Infection Suspected Infection: Skin/Soft tissue Labs Labs: Sodium 135 mmol/L (136-145) L 07/05/23 09:45 Potassium 4.3 mmol/L (3.5-5.1) 07/05/23 09:45 Chloride 106 mmol/L (98-107) 07/05/23 09:45 Carbon Dioxide 22.0 mmol/L (21.0-32.0) 07/05/23 09:45 Anion Gap 7 (5-15) 07/05/23 09:45 BUN 8 mg/dL (7-18) 07/05/23 09:45 Creatinine 0.92 mg/dL (0.70-1.30) 07/05/23 09:45 Est GFR (MDRD) Af Amer 107 mL/min (>60) 07/05/23 09:45 Est GFR (MDRD) Non-Af 88 mL/min (>60) 07/05/23 09:45 BUN/Creatinine Ratio 8.7 RATIO (10-20) L 07/05/23 09:45 Glucose 81 mg/dL (74-106) 07/05/23 09:45 Vancomycin Trough 18.4 ug/mL (5.0-15.0) H 07/07/23 22:14 Microbiology Microbiology: Microbiology 07/05/23 13:18 Blood Culture (Wb) - Right Hand Blood Culture - Preliminary No growth in 48 hours. 07/04/23 17:09 Blood Culture (Wb) - Right Forearm Blood Culture - Preliminary No growth in 48 hours. 07/04/23 17:00 Blood Culture (Wb) - Anticubital Right Blood Culture - Preliminary No growth in 48 hours. 07/05/23 12:58 Blood Culture (Wb) - Right Hand Bacteria Detection (PCR) - Final 07/05/23 12:58 Blood Culture (Wb) - Right Hand Blood Culture - Preliminary Presumptive Micrococcus spp. 07/04/23 16:54 Wound - Leg Gram Stain - Final 07/04/23 16:54 Wound - Leg Wound Culture - Final Pseudomonas aeruginosa Meth. resistant Staph. aureus Streptococcus dysgalactiae equ Dosing Weight Weight used for dosin.5 kg Estimated Creatinine Clearance Estimated Creatinine Clearance: 85 Goal Trough Goal Trough: 10-15 mcg/mL Pharmacy Plan for Drug Dosing Pharmacy Plan for Drug Dosing: Vancomycin trough level of 18.4, drawn 12 hrs post-dose was above the target range of 10-15. Dosing calculator still recommends a daily dose of 1000mg for an estimated trough of 14.3. Will continue dosing at 500mg q12h, and will re-check trough level in two days. Pharmacy Service will continue to monitor and adjust dosing as required. Follow-Up Labs Follow-Up Labs: Trough: Vancomycin Date/Time Labs Ordered Labs to be done on [date and time ordered]: 07/09/23 @8083
[2023-07-08] MEDS: HYDROmorphone 1 MG/ML Syringe IV ×2 (02:09→06:43)
[2023-07-08 03:46] LABS: Absolute Lymphocyte Count 0.58 X10^3/uL (0.83-4.51); Absolute Neutrophil Count 4.8 X10^3/uL (2.0-7.7); Basophil# 0.06 X10^3/uL; Basophil% 0.9 % (0-1); Eosinophil# 0.68 X10^3/uL; Eosinophils% 10.3 % (0-5); Hematocrit 32.3 % (40-54); Hemoglobin 10.3 g/dL (13.0-16.5); Lymphocyte # 0.58 X10^3/ul (0.83-4.51); Lymphocyte % 8.7 % (19-41); Mean Corp Hgb Conc 31.9 g/dL (32-36); Mean Corpuscular Hgb 33.3 pg (27.0-32.0); Mean Corpuscular Volume 104.5 fL (80-94); Mean Platelet Vol. 9.5 fl (6.2-12.0); Monocyte# 0.49 X10^3/uL; Monocyte% 7.4 % (0-10); NRBC Flagged by Analyzer 0 % (0-5); Neutrophil # 4.76 X10^3/uL (2.7-7.7); Neutrophil % 71.8 % (47-70); POSITIVE DIFFERENTIAL YES; Platelet Count 164 K/mm3 (150-450); RBC Distribution Width CV 14.6 % (11.6-14.6); RBC Distribution Width SD 55.5 fl (35.1-43.9); Red Blood Count 3.09 M/mm3 (4.6-6.2); White Blood Count 6.6 K/mm3 (4.4-11.0)
[2023-07-08 03:50] LABS: Differential Indicated SCAN CRITERIA MET
[2023-07-08 04:12] LABS: ALB/GLOB Ratio 0.5 RATIO (0.9-2.4); AST(SGOT) 40 U/L (15-37); Alanine Aminotransfer ALT/SGPT 13 U/L (16-61); Albumin, Serum 2.2 g/dL (3.2-5.0); Alkaline Phosphatase 93 U/L (45-117); Anion Gap 5 (5-15); BUN 9 mg/dL (7-18); BUN/Creat Ratio 9.7 RATIO (10-20); Calcium,Total 7.7 mg/dL (8.5-10.1); Chloride 107 mmol/L (98-107); Creatinine, Serum 0.92 mg/dL (0.70-1.30); EST Glomerular Filtration Rate 88 mL/min (>60); Est Glom Filt Rate - Afr Amer 106 mL/min (>60); Estimated Creatinine Clearance 85.44 ml/min; Globulin 4.3 g/dL (2.2-4.2); Glucose 89 mg/dL (74-106); Magnesium 1.6 mg/dL (1.6-2.6); Protein, Total 6.5 g/dL (6.4-8.2); Sodium Level 136 mmol/L (136-145)
[2023-07-08 04:26] LABS: Differential Comment SCANNED
[2023-07-08] MEDS: Cefepime HCl 2 GM in 0.9% Normal Saline (100mL MB+) 100 ML IV ×3 (06:16→21:10)
[2023-07-08] MEDS: Levothyroxine 50 MCG Tablet PO (06:40)
[2023-07-08] MEDS: oxyCODONE 5 MG Tablet 10 MG PO ×4 (09:44→23:59)
[2023-07-08] MEDS: Enoxaparin 40 MG/0.4 ML Syringe SC (10:30)
[2023-07-08] MEDS: Ensure Plus High Protein 120 ML LIQUID PO ×4 (10:30→20:54)
[2023-07-08] MEDS: Metoprolol Tartrate 25 MG Tablet PO (10:30)
[2023-07-08] MEDS: Gabapentin 300 MG Capsule PO ×3 (10:37→17:01)
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
--- NOTE | 2023-07-08 10:40 | CASEMGMT ---
SW checked with patient to see if he looked at the longterm list. Patient said there has been so much going on that he has not looked at it yet. Melanie Samuels KNOCKDOWN WORKERHalle ARROYO
--- NOTE | 2023-07-08 13:13 | CASEMGMT ---
Patient does not have a Healthcare Power of Topographical Engineer or Healthcare Living Will. Patient declined information. Melanie Samuels HISTORICAL SOCIETY DIRECTOR DINA
--- NOTE | 2023-07-08 14:39 | NURSING ---
Report given to Sandy LANDEROS who is taking over care of pt at this time.
--- NOTE | 2023-07-08 15:08 | CASEMGMT ---
SW spoke with patient and he had several choices picked out on the care home list. [facility] were [facility], [facility], [facility], and [facility] [place]. HOLLY asked Massiel fowler/michelle policy and planning manager to please send referrals to all of the facilities as patient will likely be a difficult placement due to being homeless and his history of drug use, which patient denies. Melanie Samuels COOKER SODA DINA
[2023-07-08] MEDS: clonazePAM 1 MG Tablet 2 MG PO ×2 (15:38→20:54)
--- NOTE | 2023-07-08 15:42 | CASEMGMT ---
Discharge Planning Referral sent via [facility] to [facility], [facility], [facility], and [facility] [place]. Massiel Quiles, Discharge Planning Asst.
--- NOTE | 2023-07-08 15:57 | CASEMGMT ---
So far [facility] and [facility] have declined patient. Melanie Samuels PROFESSOR OF FAMILY MEDICINE DINA
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
[2023-07-08] MEDS: MELATONIN 10 MG TABLET PO (20:55)
[2023-07-09] VITALS (13 sets, daily range): BP systolic 77–117; BP diastolic 57–86; PULSE 60–100; RESP 12–20; TEMP 35.9–36.6; O2SAT 92–99; BMI 21.4
--- NOTE | 2023-07-09 | CPS ---
Placed pt on cool aerosol on room air. Pt has stoma only.
[2023-07-09] MEDS: oxyCODONE 5 MG Tablet 10 MG PO ×3 (05:20→22:07)
[2023-07-09 07:51] LABS: Anion Gap 11 (5-15); BUN 16 mg/dL (7-18); BUN/Creat Ratio 18.4 RATIO (10-20); Calcium,Total 8.5 mg/dL (8.5-10.1); Chloride 106 mmol/L (98-107); Creatinine, Serum 0.87 mg/dL (0.70-1.30); EST Glomerular Filtration Rate 94 mL/min (>60); Est Glom Filt Rate - Afr Amer 114 mL/min (>60); Estimated Creatinine Clearance 90.35 ml/min; Glucose 91 mg/dL (74-106); Potassium 4.7 mmol/L (3.5-5.1); Sodium Level 136 mmol/L (136-145)
--- NOTE | 2023-07-09 08:02 | NURSING ---
Found pt. eating several times after midnight, even after explaining to him that he was to be NPO @ midnight for surgery and the importance of following this so that he could have his surgery today (pt. nodded head in a yes fashion when asked if he understood this). Last found to be eating/ drinking @ 6:20 am. Pt. refused 2nd set of vitals due @ 0500, 6 am IV ATB, tylenol, and levothyroxine- only took PRN oxycodone. Was very frustrated that he could not have his gabapentin or klonopin until later, throwing arms up in the air and gesturing forcefully @ me. I tried to explain to him that we could give it an hour early, but we could not give it any earlier than that per our policy, but this only appeared to frustrate him more. I advised oncoming nurse about complications during the night and lack of pt. being NPO.
[2023-07-09 08:47] LABS: Absolute Lymphocyte Count 0.71 X10^3/uL (0.83-4.51); Absolute Neutrophil Count 3.2 X10^3/uL (2.0-7.7); Basophil# 0.06 X10^3/uL; Basophil% 1.1 % (0-1); Eosinophil# 0.67 X10^3/uL; Hematocrit 34.6 % (40-54); Hemoglobin 11.1 g/dL (13.0-16.5); Lymphocyte # 0.71 X10^3/ul (0.83-4.51); Lymphocyte % 12.7 % (19-41); Mean Corp Hgb Conc 32.1 g/dL (32-36); Mean Corpuscular Hgb 33.5 pg (27.0-32.0); Mean Corpuscular Volume 104.5 fL (80-94); Mean Platelet Vol. 9.3 fl (6.2-12.0); Monocyte# 0.91 X10^3/uL; Monocyte% 16.3 % (0-10); NRBC Flagged by Analyzer 0 % (0-5); Neutrophil % 57.2 % (47-70); Platelet Count 152 K/mm3 (150-450); RBC Distribution Width CV 14.7 % (11.6-14.6); Red Blood Count 3.31 M/mm3 (4.6-6.2); White Blood Count 5.6 K/mm3 (4.4-11.0)
--- NOTE | 2023-07-09 09:51 | NURSING ---
pt sleeping, HOB up 30, resp 18
[2023-07-09] MEDS: clonazePAM 1 MG Tablet 2 MG PO ×2 (10:10→22:06)
[2023-07-09] MEDS: Gabapentin 300 MG Capsule PO (10:10)
[2023-07-09] MEDS: Metoprolol Tartrate 25 MG Tablet PO (10:11)
[2023-07-09] MEDS: Pantoprazole Sodium 40 MG Tablet PO (10:12)
--- NOTE | 2023-07-09 10:28 | NURSING ---
pt became hostile, throwing things, flipping off and swearing at nurse because she wouldn't let him snort his neurontin-charge nurse in room to assist-told pt that we are only trying to help him left upper arm iv flushes well, pt refused PICC line yesterday and refuses to let this nurse check for another site-pt has been a long time drug user and good sites are minimal
[2023-07-09] MEDS: Cefepime HCl 2 GM in 0.9% Normal Saline (100mL MB+) 100 ML IV ×3 (10:34→23:56)
--- NOTE | 2023-07-09 10:52 | WOUNDNOTE ---
Pt going to surgery today with Dr Paz. will leave dressings in place.
[2023-07-09] MEDS: Vancomycin IV 500 MG/100 ML BAG 100 MG IV (11:01)
--- NOTE | 2023-07-09 13:50 | CASEMGMT ---
[facility] patient. [facility] in [place] has accepted patient. SW went to notify patient, but he was being taken to surgery. Plan: [facility] pending patient being medically ready and insurance approving. Melanie Samuels ICE GUARD INSPECTORHalle ARROYO
[2023-07-09] MEDS: Lactated Ringers 1,000 ML 15 ML IV (14:04)
[2023-07-09] MEDS: HYDROmorphone 1 MG/ML Syringe IV (14:26)
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
[2023-07-09] MEDS: Bupivacaine 0.5% PF 10 ML VIAL (16:25)
--- NOTE | 2023-07-09 16:35 | PCM.OPRPT ---
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 Patient induced under MAC anesthesia. Bilateral lower extremity scrubbed prepped draped using typical aseptic fashion. Once cleared by anesthesia local infiltration block was performed using 20 cc of half percent Marcaine plain to the right leg as well as the left leg using local infiltration technique. Bilateral leg wounds were debrided excisionally down to including level of subcutaneous tissue and flushed using the [employer] [place] debrider of all nonviable tissue until healthy granular bleeding noted. Post lavage right leg tissue culture taken from the right lower extremity wound using sterile rongeurs. Predebridement measurement on the right leg ulceration 9 x 10 x 0.3 cm, postdebridement was 9.2 x 10.2 x 0.4 cm. Predebridement measurement of the left leg ulceration was 3 x 4.2 x 0.3 cm. Postdebridement measurements of the left leg ulceration were 3.2 x 4.4 x 0.4 cm. A 3 x 5 cm epi cord graft was applied to the right lower extremity wound and stabilized with overlying Adaptic and quarter inch Steri-Strips. A 2 x 2 Epicort graft was applied to the left lower extremity ulceration and stabilized with overlying Adaptic and quarter inch Steri-Strips. Bilateral leg wounds were then dressed with 4 x 4's Kerlix 2 layers of specialist cast padding two 4 inch Reza bandages wrapped from the base of the digits to proximal to the widest portion of the calf. Additional 2 layers of cast padding followed by an overlying 6 inch Reza. This is a Potter compression dressing. Patient was then transferred to PACU vital signs stable and vascular status intact all digits for further monitoring prior to transfer back to floor. Patient tolerated procedure and anesthesia well apparent satisfactory condition. No complications Stable granular wound base is noted to bilateral leg ulceration status postdebridement and graft application. Improved edema and erythema to right lower extremity. Patient will continue to receive IV antibiotics on the floor. Grafts/Implants Used: One 2 x 2 epi cord graft followed by a 3 x 5 cm epi cord graft
--- NOTE | 2023-07-09 18:22 | NURSING ---
FULL LEG WRAPS FROM KNEES TO TOES INHIBIT SEEING WOUNDS OR CHECKING PULSES BLE-PT HAS CAP REFILL ON WARM AND PINK TOES BILATERALLY
[2023-07-09] MEDS: Vancomycin Trough/Random Due 1 LAB MC (22:20)
[2023-07-09 23:03] LABS: Vancomycin, Trough Level 17.4 ug/mL (5.0-15.0)
[2023-07-10] VITALS (8 sets, daily range): BP systolic 93–110; BP diastolic 70–95; PULSE 64–110; RESP 16–18; TEMP 36.4–36.8; O2SAT 94–98
--- NOTE | 2023-07-10 01:46 | PCM.RX.CS ---
Consult Antibiotic Management Pharmacy has been consulted to manage selected antiobiotic: Vancomycin Type of Intervention Type of Consult: Follow-up Labs Labs: Sodium 136 mmol/L (136-145) 07/09/23 06:00 Potassium 4.7 mmol/L (3.5-5.1) 07/09/23 06:00 Chloride 106 mmol/L (98-107) 07/09/23 06:00 Carbon Dioxide 19.0 mmol/L (21.0-32.0) L 07/09/23 06:00 Anion Gap 11 (5-15) 07/09/23 06:00 BUN 16 mg/dL (7-18) 07/09/23 06:00 Creatinine 0.87 mg/dL (0.70-1.30) 07/09/23 06:00 Est GFR (MDRD) Af Amer 114 mL/min (>60) 07/09/23 06:00 Est GFR (MDRD) Non-Af 94 mL/min (>60) 07/09/23 06:00 BUN/Creatinine Ratio 18.4 RATIO (10-20) 07/09/23 06:00 Glucose 91 mg/dL (74-106) 07/09/23 06:00 Vancomycin Trough 17.4 ug/mL (5.0-15.0) H 07/09/23 22:12 Microbiology Microbiology: Microbiology 07/05/23 13:18 Blood Culture (Wb) - Right Hand Blood Culture - Preliminary No growth in 48 hours. 07/04/23 17:09 Blood Culture (Wb) - Right Forearm Blood Culture - Preliminary No growth in 48 hours. 07/04/23 17:00 Blood Culture (Wb) - Anticubital Right Blood Culture - Preliminary No growth in 48 hours. 07/05/23 12:58 Blood Culture (Wb) - Right Hand Bacteria Detection (PCR) - Final 07/05/23 12:58 Blood Culture (Wb) - Right Hand Blood Culture - Preliminary Presumptive Micrococcus spp. 07/04/23 16:54 Wound - Leg Gram Stain - Final 07/04/23 16:54 Wound - Leg Wound Culture - Final Pseudomonas aeruginosa Meth. resistant Staph. aureus Streptococcus dysgalactiae equ Pharmacy Plan for Drug Dosing Pharmacy Plan for Drug Dosing: Pharmacy Service will continue to monitor and adjust dosing as required. TROUGH 17.4 @11.5 HOURS. HOLD CURRENT DOSE AND DRAW RANDOM LEVEL IN 8 HOURS. (GOAL 10-15) Follow-Up Labs Follow-Up Labs: Trough: Vancomycin Date/Time Labs Ordered Labs to be done on [date and time ordered]: 07/10 @ 0600
[2023-07-10] MEDS: Cefepime HCl 2 GM in 0.9% Normal Saline (100mL MB+) 100 ML IV ×3 (05:44→21:04)
[2023-07-10] MEDS: Vancomycin Trough/Random Due 1 LAB MC (06:53)
[2023-07-10] MEDS: oxyCODONE 5 MG Tablet 10 MG PO ×3 (06:54→19:48)
[2023-07-10 06:59] LABS: Absolute Lymphocyte Count 0.49 X10^3/uL (0.83-4.51); Absolute Neutrophil Count 3.7 X10^3/uL (2.0-7.7); Basophil# 0.06 X10^3/uL; Basophil% 1.1 % (0-1); Eosinophil# 0.54 X10^3/uL; Hematocrit 32.3 % (40-54); Hemoglobin 10.5 g/dL (13.0-16.5); Lymphocyte # 0.49 X10^3/ul (0.83-4.51); Lymphocyte % 9.1 % (19-41); Mean Corp Hgb Conc 32.5 g/dL (32-36); Mean Corpuscular Hgb 33.5 pg (27.0-32.0); Mean Corpuscular Volume 103.2 fL (80-94); Monocyte# 0.54 X10^3/uL; NRBC Flagged by Analyzer 0 % (0-5); Neutrophil # 3.74 X10^3/uL (2.7-7.7); Neutrophil % 69.2 % (47-70); POSITIVE DIFFERENTIAL YES; Platelet Count 139 K/mm3 (150-450); RBC Distribution Width CV 15.2 % (11.6-14.6); Red Blood Count 3.13 M/mm3 (4.6-6.2); White Blood Count 5.4 K/mm3 (4.4-11.0)
[2023-07-10 07:16] LABS: Differential Indicated SCAN CRITERIA MET
[2023-07-10 07:25] LABS: Vancomycin, Random Level 15.4 ug/mL (0.0-15.0)
[2023-07-10 07:28] LABS: Anion Gap 6 (5-15); BUN 14 mg/dL (7-18); BUN/Creat Ratio 17.6 RATIO (10-20); Chloride 107 mmol/L (98-107); Creatinine, Serum 0.79 mg/dL (0.70-1.30); EST Glomerular Filtration Rate 104 mL/min (>60); Est Glom Filt Rate - Afr Amer 126 mL/min (>60); Estimated Creatinine Clearance 98.21 ml/min; Glucose 102 mg/dL (74-106); Potassium 4.2 mmol/L (3.5-5.1); Sodium Level 138 mmol/L (136-145)
[2023-07-10 08:25] LABS: Differential Comment SCANNED
--- NOTE | 2023-07-10 08:41 | PCM.RX.CS ---
Consult Antibiotic Management Pharmacy has been consulted to manage selected antiobiotic: Vancomycin Type of Intervention Type of Consult: Follow-up Suspected Infection Suspected Infection: Other Prior Doses of Antibiotics Prior Doses of Antibiotics Received/Current Regimen: 07/04 Vancomycin 1250mg @ 1913 07/05 Vancomycin 750mg @ 0402 07/05 Vancomycin 750mg 1835 07/07 Vancomycin 500mg @ 1007 07/08 Vancomycin 500mg @0028,1044,2210 07/09 Vancomycin 500mg @ 1101 Labs Labs: Sodium 138 mmol/L (136-145) 07/10/23 06:40 Potassium 4.2 mmol/L (3.5-5.1) 07/10/23 06:40 Chloride 107 mmol/L (98-107) 07/10/23 06:40 Carbon Dioxide 25.0 mmol/L (21.0-32.0) 07/10/23 06:40 Anion Gap 6 (5-15) 07/10/23 06:40 BUN 14 mg/dL (7-18) 07/10/23 06:40 Creatinine 0.79 mg/dL (0.70-1.30) 07/10/23 06:40 Est GFR (MDRD) Af Amer 126 mL/min (>60) 07/10/23 06:40 Est GFR (MDRD) Non-Af 104 mL/min (>60) 07/10/23 06:40 BUN/Creatinine Ratio 17.6 RATIO (10-20) 07/10/23 06:40 Glucose 102 mg/dL (74-106) 07/10/23 06:40 Vancomycin Trough 17.4 ug/mL (5.0-15.0) H 07/09/23 22:12 Random Vancomycin 15.4 ug/mL (0.0-15.0) H 07/10/23 06:40 Microbiology Microbiology: Microbiology 07/04/23 17:09 Blood Culture (Wb) - Right Forearm Blood Culture - Final No growth in 5 days. 07/04/23 17:00 Blood Culture (Wb) - Anticubital Right Blood Culture - Final No growth in 5 days. 07/05/23 13:18 Blood Culture (Wb) - Right Hand Blood Culture - Preliminary No growth in 48 hours. 07/05/23 12:58 Blood Culture (Wb) - Right Hand Bacteria Detection (PCR) - Final 07/05/23 12:58 Blood Culture (Wb) - Right Hand Blood Culture - Preliminary Presumptive Micrococcus spp. 07/04/23 16:54 Wound - Leg Gram Stain - Final 07/04/23 16:54 Wound - Leg Wound Culture - Final Pseudomonas aeruginosa Meth. resistant Staph. aureus Streptococcus dysgalactiae equ Dosing Weight Weight used for dosin.5 kg Estimated Creatinine Clearance Estimated Creatinine Clearance: 98 Pharmacy Plan for Drug Dosing Pharmacy Plan for Drug Dosing: Start Vancomycin 750mg daily Pharmacy Service will continue to monitor and adjust dosing as required. Follow-Up Labs Follow-Up Labs: Trough: Vancomycin Date/Time Labs Ordered Labs to be done on [date and time ordered]: 07/12 @ 8787
--- NOTE | 2023-07-10 08:49 | PN_ITS ---
Subjective Subjective 1 day post op pain controlled denies consitutional symptoms no other complaints Objective Data Objective Data Vital Signs: Vital Signs Temp Pulse Resp BP Pulse Ox O2 Del Method FiO2 98 F 110 H 18 110/95 H 95 Room Air 21 07/10/23 06:56 07/10/23 06:56 07/10/23 06:56 07/10/23 06:56 07/10/23 06:56 07/10/23 06:56 07/09/23 02:48 Oxygen Delivery Method Room Air Weight: 73.5 kg Body Mass Index (BMI) 21.4 Intake & Output: Intake and Output for Last 24 Hours 07/08/23 07/09/23 07/10/23 23:59 23:59 23:59 Intake Total 1600 / 2600 1925 / 1925 200 / 200 Output Total 500 / 1000 1600 / 2000 850 / 850 Balance 1100 / 1600 325 / -75 -650 / -650 Lab / Micro Data 07/10/23 06:40 07/10/23 06:40 Labs: Laboratory Results - last 24 hr 07/09/23 22:12: Vancomycin Trough 17.4 H 07/10/23 06:40: WBC 5.4, RBC 3.13 L, Hgb 10.5 L, Hct 32.3 L, MCV 103.2 H, MCH 33.5 H, MCHC 32.5, RDW Std Deviation 56.0 H, RDW Coeff of Allen 15.2 H, Plt Count 139 L, MPV 9.0, Immature Gran % (Auto) 0.600, Neut % (Auto) 69.2, Lymph % (Auto) 9.1 L, Phelps % (Auto) 10.0, Eos % (Auto) 10.0 H, Baso % (Auto) 1.1 H, Absolute Neuts (auto) 3.7, Absolute Lymphs (auto) 0.49 L, Nucleated RBC % 0, Differential Comment SCANNED, Sodium 138, Potassium 4.2, Chloride 107, Carbon Dioxide 25.0, Anion Gap 6, BUN 14, Creatinine 0.79, Estim Creat Clear Calc 98.21, Est GFR (MDRD) Af Amer 126, Est GFR (MDRD) Non-Af 104, BUN/Creatinine Ratio 17.6, Glucose 102, Calcium 8.0 L, Random Vancomycin 15.4 H Micro: Microbiology 07/04/23 17:09 Blood Culture (Wb) - Right Forearm Blood Culture - Final No growth in 5 days. 07/04/23 17:00 Blood Culture (Wb) - Anticubital Right Blood Culture - Final No growth in 5 days. 07/05/23 13:18 Blood Culture (Wb) - Right Hand Blood Culture - Preliminary No growth in 48 hours. 07/05/23 12:58 Blood Culture (Wb) - Right Hand Bacteria Detection (PCR) - Final 07/05/23 12:58 Blood Culture (Wb) - Right Hand Blood Culture - Preliminary Presumptive Micrococcus spp. 07/04/23 16:54 Wound - Leg Gram Stain - Final 07/04/23 16:54 Wound - Leg Wound Culture - Final Pseudomonas aeruginosa Meth. resistant Staph. aureus Streptococcus dysgalactiae equ Radiography Diagnostic Testing: Radiology Impression Extremity Arterial Study 07/07/23 14:59 Interpretation Summary Right LEANNE 1.29, normal. Doppler/PVR waveforms of the right leg normal at rest. TBI diminished, pedal/digit disease vs spasm. Left LEANNE 1.27, normal. Doppler/PVR waveforms of the left leg normal at rest. TBI diminished, pedal/digit disease vs spasm Ordering Physician: Audie Paz Referring Physician: Griffin Soria Performed By: Romana Shook RVT Physical Exam Narrative neurovascular status unchanged Intact graft, adaptic and steristrips to bilateral leg wounds. Improved erythema, edema and drainage today. no signs of DVT. Assessment & Plan Assessment/Plan (1) Other acute osteomyelitis, right ankle and foot: PLAN: Exam performed re-dressed with overlying silver alginated, DSD and antonio for compression patient will get every third day dressing changes consisting of silver alginate, DSD and antonio bandage at [facility] - by 07/16/23 the facility can remove steristrisp and adaptic to access wound for direct cleansing/dressing patient has no weightbearing restrictions patient will d/c to snf post debridement/lavage tisse cultures taken of right leg wound - would re commend directing antibiotics to this ABX recommendations per infectious disease (2) Non-pressure chronic ulcer of left calf with fat layer exposed: (3) Non-pressure chronic ulcer of right calf with fat layer exposed:
--- NOTE | 2023-07-10 08:59 | CASEMGMT ---
Discharge Planning Updates sent to [facility]. ID note will need sent when available. Massiel Quiles, Discharge Planning Asst.
[2023-07-10] MEDS: clonazePAM 1 MG Tablet 2 MG PO ×2 (09:16→21:09)
[2023-07-10] MEDS: Ensure Plus High Protein 120 ML LIQUID PO ×4 (09:17→21:09)
[2023-07-10] MEDS: Enoxaparin 40 MG/0.4 ML Syringe SC (09:19)
[2023-07-10] MEDS: Metoprolol Tartrate 25 MG Tablet PO (09:19)
[2023-07-10] MEDS: Vancomycin HCl 750 MG in 0.9% Normal Saline (250mL Bag) 250 ML 250 MG IV (09:52)
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
--- NOTE | 2023-07-10 10:51 | CASEMGMT ---
Discharge Planning Antibiotic orders sent to [facility]. Asked for precert to be started. Massiel Quiles, Discharge Plannign Asst.
--- NOTE | 2023-07-10 11:06 | CASEMGMT ---
SW told patient that SW made referrals to all of the facilities he chose and they all said no except for [facility]. Patient asked SW where that facility is located. SW is not aware of where exactly the facility is located, but the zip code that was entered was for the [place] [facility]. Patient was agreeable to go to [facility]. Pre-cert has been initiated. Plan: d/c to [facility] pending insurance approval. Melanie ARROYO
--- NOTE | 2023-07-10 14:24 | TREXTCAR_ITS ---
Diet Diet Order/Speech Therapy: 07/09/23 17:49 Diet: Regular - General Type of Dietary Supplement:: Thom w/ lunch and dinner Is pt able to select menu?: Yes Routine Orders/Code Status O2 Frequency: PRN Keep PO Greater than or Equal to (%): 89 Routine Lab Work: CBC (1 week) and BMP (1 week) Code Status: Full Code Wound(s) BILAT [place]: Wound Type: Wounds left [place]: Wound Type: Surgical Incision Dressing Change: Aquacel AG right [place]: Wound Type: Surgical Incision Dressing Change: Aquacel AG LEFT LEG: Wound Type: Stasis Ulcer Dressing Change: AntiMicrobial (Aquacel AG, etc) RIGHT LEG: Wound Type: Stasis Ulcer Dressing Change: AntiMicrobial (Aquacel AG, etc) Suggestions for Active Care Change Position every (hours): 2 Therapies Physical Therapy: Eval and Treat Occupational Therapy: Eval and Treat Problem/Diagnosis (1) History of throat cancer: Status: Acute Code(s): Z85.819 - Personal history of malignant neoplasm of unspecified site of lip, oral cavity, and pharynx (2) Cellulitis of lower limb: Status: Acute Code(s): L03.119 - Cellulitis of unspecified part of limb Allergies/Procedures Done in Hospital Allergies ibuprofen [From Motrin] Allergy (Verified 07/04/23 15:51) PT UNSURE OF REACTION ketorolac [From Toradol] Allergy (Verified 07/04/23 15:51) PT UNSURE OF REACTION Penicillins Allergy (Verified 07/04/23 15:51) PT UNSURE OF REACTION Type of Care/Length of Stay Estimated LOS: Convalescent Care Less Than 30 days Type of Care Needed: Intermediate Rehab Potential: Fair Prognosis: Fair Additional Orders/Day of Discharge Additional Orders: patient will need every third day dressing changes consisting of silver alginate, DSD and antonio bandage at SNF - by 07/16/23 the facility can remove steristrisp and adaptic to access wound for direct cleansing/dressing Day of Discharge: 07/10/23 Dietary and Speech Recommendations Dietitian Recommendations/Changes: Regular diet Thom BID w/ lunch and dinner meals to support wound healing 120mL ensure plus HP 4 times per day w/ medpass to optimize nutrition Discharge Plan Admission Admit Date/Time: 07/04/23 20:19 Attending Provider: Zoya Carolina Primary Care Provider: Griffin Soria Consulting Providers: Aniya Calvin; Ousmane Gonzalez; Hai Lagos; Audie Paz Instructions Additional Instructions / Restrictions: - patient will get every third day dressing changes to bilateral legs consisting of silver alginate, DSD and antonio bandage at [facility] - by 07/16/23 the facility can remove steristrips and adaptic to access wound for direct cleansing/dressing (prior to that time the adaptic and steri strips should remain intact during dressing changes) Discharge Orders/Prescriptions Prescriptions: New levofloxacin 500 mg tablet 500 mg PO DAILY Qty: 7 0RF doxycycline hyclate 100 mg capsule 100 mg PO BID Qty: 14 0RF No Action clonazepam 2 mg tablet 2 mg PO BID Patient Comments: take 1 tablet by mouth twice a day if needed for anxiety gabapentin 300 mg capsule 300 mg PO TID Patient Comments: TAKE ONE CAPSULE BY MOUTH THREE TIMES DAILY levothyroxine 125 mcg tablet 125 mcg PO DAILY Patient Comments: TAKE ONE TABLET BY MOUTH EVERY DAY Xarelto 20 mg tablet 20 mg PO .HS Patient Comments: TAKE ONE TABLET BY MOUTH EVERY DAY pantoprazole 40 mg tablet,delayed release (DR/EC) 40 mg PO DAILY Referrals / Follow Up: Audie Paz, DPRaquel [Med Staff - Active Staff] - Griffin Soria [facility], [employer] [Primary Care Provider] - (2) Cellulitis of lower limb Qualifiers: Laterality: unspecified laterality Qualified Code(s): L03.119 - Cellulitis of unspecified part of limb
--- NOTE | 2023-07-10 14:48 | CASEMGMT ---
HOLLY sent [phone] to [place] at [place] via [employer]. Melanie Samuels [place]
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
[2023-07-10] MEDS: Rivaroxaban 20 MG Tablet PO (18:27)
[2023-07-10] MEDS: HYDROmorphone 1 MG/ML Syringe IV (18:28)
[2023-07-10] MEDS: MELATONIN 10 MG TABLET PO (21:05)
[2023-07-11 03:05] VITALS: BP 100/79; PULSE 98; RESP 17; TEMP 36.9; O2SAT 93
[2023-07-11] MEDS: oxyCODONE 5 MG Tablet 10 MG PO ×3 (04:58→13:50)
[2023-07-11] MEDS: Cefepime HCl 2 GM in 0.9% Normal Saline (100mL MB+) 100 ML IV ×2 (05:46→13:50)
[2023-07-11] MEDS: Levothyroxine 125 MCG Tablet PO (05:56)
--- NOTE | 2023-07-11 08:48 | WOUNDNOTE ---
dressings were changed yesterday to bilateral lower legs. dressing orders are every 3 days changes. will leave in place.
[2023-07-11 09:05] VITALS: BP 90/63; PULSE 94; RESP 20; TEMP 36.3; O2SAT 94
--- NOTE | 2023-07-11 09:31 | CASEMGMT ---
Therapy saw patient today. Evaluations will be sent to [facility] via [facility]. Melanie Samuels JACQUARD LOOM FIXER DINA
[2023-07-11] MEDS: Vancomycin HCl 750 MG in 0.9% Normal Saline (250mL Bag) 250 ML 250 MG IV (09:47)
[2023-07-11 09:48] VITALS: PULSE 89
[2023-07-11] MEDS: Metoprolol Tartrate 25 MG Tablet PO (09:48)
[2023-07-11] MEDS: Pantoprazole Sodium 40 MG Tablet PO (09:48)
[2023-07-11] MEDS: clonazePAM 1 MG Tablet 2 MG PO (09:54)
[2023-07-11] MEDS: Gabapentin 600 MG Tablet 300 MG PO ×2 (09:54→13:51)
--- NOTE | 2023-07-11 10:08 | CASEMGMT ---
Discharge Planning Updates sent to [facility] via [facility]. Massiel Quiles, Discharge Planning Asst.
--- NOTE | 2023-07-11 11:26 | CASEMGMT ---
SW sent wound care orders to [facility] via [facility] per their request. Melanie Samuels PROJECT DEVELOPMENT LEADER DINA
--- NOTE | 2023-07-11 12:37 | CASEMGMT ---
[facility] HOLLY notified patient that his insurance has only approved [facility] the [facility]. Patient was upset as he thought he would get more than 14 days. He does not know what he is going to do after that. HOLLY told patient he may have to go to a residential. Patient said his sister called them and they are all full. SW told patient they may not be full after 14 days and maybe he could get on a waiting list. Patient was mad because no one told him he would only have 14 days. SW told patient insurance just told the [facility] this information today and as soon as SW received this information SW told patient. SW tried to explain how the [facility] process works with insurance. SW encouraged patient to take the 14 days he was approved for to get his wounds taken care of and while he is there work on alternate plans. SW let patient know that insurance will continue to review his case [facility] the [facility] and if they feel he needs more time they would levar him more time. Patient seemed to have his questions answered sufficiently. HOLLY asked patient if he would like the [employer] to come back and order his lunch. Patient said yes. SW notified [employer]. Melanie Samuels MICROSTRATEGY BI DEVELOPER DINA
--- NOTE | 2023-07-11 13:20 | PCM.DC.SUM ---
Providers Date of Admission: 07/04/23 Date of Discharge: 07/11/23 Primary Care Physician: [facility] Meyer Consultations 07/04/23 20:21 Consult: Onc/Wound/service or work dispatcher Routine Comment: Reason for Consult:: Wound care 07/04/23 22:02 Consult: Infectious Disease Routine Consulting Provider: Hai Lagos Reason for Consult: Bilateral cellulitis with concern for osteomyelitis EMERGENT Consult: No MD Notified: No Date Notified: 07/04/23 Time Notified: 22:02 07/07/23 10:43 Consult: Infectious Disease Routine Consulting Provider: Hai Lagos Reason for Consult: bactermia,cellulitis EMERGENT Consult: No MD Notified: Yes Date Notified: 07/07/23 Time Notified: 10:44 Method of Notification: Answering Service 07/07/23 12:16 Consult: Podiatry Routine Consulting Provider: Audie Paz Reason for Consult: R austin ulcer EMERGENT Consult: No MD Notified: Yes Date Notified: 07/07/23 Time Notified: 12:48 Method of Notification: Text Reason For Visit: CELLULITIS Diagnosis Discharge Diagnosis (1) History of throat cancer: Status: Acute Code(s): Z85.819 - Personal history of malignant neoplasm of unspecified site of lip, oral cavity, and pharynx (2) Cellulitis of lower limb: Status: Acute Code(s): L03.119 - Cellulitis of unspecified part of limb Qualifiers: Laterality: unspecified laterality Qualified Code(s): L03.119 - Cellulitis of unspecified part of limb Medications at Discharge Home Medications clonazepam 2 mg tablet 2 mg PO BID anxiety 07/08/23 gabapentin 300 mg capsule 300 mg PO TID neuropathy 07/08/23 levothyroxine 125 mcg tablet 125 mcg PO DAILY thyroid 07/08/23 pantoprazole 40 mg tablet,delayed release 40 mg PO DAILY stomach 07/08/23 rivaroxaban 20 mg tablet (Xarelto) 20 mg PO .HS blood thinner 07/08/23 doxycycline hyclate 100 mg capsule 100 mg PO BID #14 caps 07/10/23 levofloxacin 500 mg tablet 500 mg PO DAILY #7 tabs 07/10/23 food supplemt, lactose-reduced 0.08 gram-1.5 kcal/mL oral liquid (Ensure Plus High Protein) 120 ml PO 4X/DAY #0 mL 07/11/23 metoprolol tartrate 25 mg tablet 25 mg PO BID #0 tabs 07/11/23 oxycodone 5 mg tablet 10 mg (2 x 5 mg) PO Q4H PRN PRN Pain Score 4-10 1 day #6 tabs 07/11/23 psyllium husk (aspartame) 3 gram oral powder packet (Daily Fiber (psyllium-aspartame)) 1 packet PO DAILY PRN PRN Constipation #0 ea 07/11/23 Hospital Course Operations - (Bilateral lower extremity wound debridement) Procedures - (X-rays tibia/fibula bilaterally/lower extremity arterial studies) Summary of Care Provided Minutes Spent on Discharge: 42 Hospital Course: Mr. Herrera is a 62-year-old male with a history of homelessness and noncompliance with medical therapy who presented to the emergency department on 07/04/2023 due to bilateral lower extremity wounds. He has a prior history of laryngeal cancer status post laryngectomy and has a chronic ostomy that is open air. He has been having issues with bilateral lower extremity wounds for the last several months and was reportedly on IV antibiotics through a PICC line and then transition to oral doxycycline for suppression but he never completed his antibiotics. He noticed over the past several days to presentation he was having worsening seepage of the wound and intermittent fever with chills and sweats. He had been living with his daughter however she recently moved to [place]. He was afebrile at the time of admission and his blood pressure was stable at 118/86. Imaging of his lower extremities showed defect of the anterior soft tissues consistent with a wound and periosteal reaction suspicious for osteomyelitis and an MRI was recommended. His initial lactate was 4. Cultures were obtained and he was started on broad-spectrum antibiotics. Wound cultures are showing Pseudomonas, MRSA, strep dysgalactiae and blood culture showed presumptive micrococcus in 1 of 2 bottles. He was started on Levaquin and vancomycin. He was also noted to be in A-fib with RVR so his metoprolol was restarted for rate control and his anticoagulation was continued. Disease thought his micrococcus was contaminant however he was on ongoing treatment for his lower extremity infections and podiatry was consulted. He was taken to the OR for debridement on 07/09/2023. Preoperative ABIs were performed and they were both found to be normal in bilateral lower extremities with an LEANNE of 1.29 on the right and 1.27 on the left. This was delayed due to his Xarelto and it was held after his evaluation by podiatry for surgery. Xarelto was restarted on the following surgery without any issue. We did check his TSH during his hospitalization and he was found to be markedly hypothyroid. I did confront him about compliance and he reported compliance despite his TSH being 166. He had no signs of myxedema coma or other complications related to severe hypothyroidism so we did restart his home oral dosing and I suggest he have a repeat TSH done in the next 6 weeks. He was able to be transition to oral antibiotics at the time of discharge with Levaquin 500 milligrams daily for 1 more week and doxycycline 100 mg p.o. twice daily for the same time period. With regards to his wounds, the plan is for dressing changes every third day consisting of silver alginate, DSD and [facility] and they can remove the Steri-Strips and Adaptic to access the wound for direct cleansing and dressing. He has no weightbearing restrictions and will need outpatient follow-up with podiatry after discharge. This appointment can be made for after discharge from skilled facility. We were able to verify his home medications and he was restarted on all home oral medications during his hospital course. At the time of discharge she was in normal sinus rhythm. He was excepted for SNF placement and we received pre-CERT on 07/11/2023. Discharge diagnoses: Sepsis-resolved Osteomyelitis Polymicrobial bilateral lower extremity wound infection Lactic acidosis-resolved Severe hypothyroidism Paroxysmal atrial fibrillation History of throat cancer History of polysubstance abuse Tobacco abuse Debility Physical Exam Const alert, oriented x3, no apparent distress and average body habitus; Negative for healthy appearing or well nourished Constitutional Narrative: Thin, middle-aged, white male, seems much older than stated age, disheveled and appears poorly cared for at baseline, sitting up in bed watching television eating breakfast General Appearance: cooperative, comfortable and well developed Exam Limitations: no limitations Nutritional Appearance: thin HEENT normocephalic, head/scalp atraumatic and moist oral mucous membranes HEENT Narrative: Mild hearing loss, Mallampati 2, no thrush, dentition is poor Eyes PERRL, EOMs intact bilaterally and conjunctivae normal Eyes Narrative: No scleral icterus Neck no lymphadenopathy and supple Neck Narrative: Trachea midline, Stoma noted as above with no discharge, Resp normal respiratory effort, no retractions, no use of accessory muscles and clear to auscultation bilaterally Resp Narrative: Diminished but clear Auscultation: Negative for rales, rhonchi or wheezes Cardio regular rate, regular rhythm, S1 normal heart sound, S2 normal heart sound, no murmurs, no rub, no gallops and no clicks GI normal to inspection, nondistended, normoactive bowel sounds, soft to palpation and non-tender Extremity Extremity Narrative: Postoperative dressings in place-wounds are reviewed on imaging and look good following debridement Skin Skin Narrative: Evidence of chronic venous stasis bilateral lower extremities with wounds noted as above, poor overall care Neuro oriented x3, CN's II-XII intact bilaterally, moves all extremities and no focal motor deficits Neuro Narrative: Speech is intermittently difficult to understand due to his ostomy Sensorium / Orientation: awake and alert Speech: Negative for speech normal Psych Psych Narrative: Interacts appropriately today, calm Weight / BMI Weight Weight: 73.5 kg Body Mass Index (BMI) 21.4 ABG / Lab / Microbiology Data 07/10/23 06:40 07/10/23 06:40 Microbiology: Microbiology 07/11/23 12:01 Nasal Secretion SARS-CoV-2 Antigen (Rapid) - Final 07/09/23 Unknown Wound - Leg, Right Gram Stain - Final 07/09/23 Unknown Wound - Leg, Right Wound Culture - Preliminary No growth-Final to follow 07/09/23 Unknown Wound - Leg, Right Anaerobic Culture - Preliminary No growth in 48 hours. 07/05/23 13:18 Blood Culture (Wb) - Right Hand Blood Culture - Final No growth in 5 days. 07/05/23 12:58 Blood Culture (Wb) - Right Hand Bacteria Detection (PCR) - Final 07/05/23 12:58 Blood Culture (Wb) - Right Hand Blood Culture - Final Presumptive Micrococcus spp. 07/04/23 17:09 Blood Culture (Wb) - Right Forearm Blood Culture - Final No growth in 5 days. 07/04/23 17:00 Blood Culture (Wb) - Anticubital Right Blood Culture - Final No growth in 5 days. 07/04/23 16:54 Wound - Leg Gram Stain - Final 07/04/23 16:54 Wound - Leg Wound Culture - Final Pseudomonas aeruginosa Meth. resistant Staph. aureus Streptococcus dysgalactiae equ Meaningful Use Info Meaningful Use Diagnoses (Choose all that apply): None applicable Discharge Plan Admission Admit Date/Time: 07/04/23 20:19 Primary Reason for Your Visit: Bilateral lower extremity wound infection Attending Provider: Zoya Carolina Primary Care Provider: Griffin Soria [facility] Consulting Providers: Aniya Calvin; Ousmane Gonzalez; Hai Lagos; Audie Paz Instructions Additional Instructions / Restrictions: 1. Patient will get every third day dressing changes to bilateral legs consisting of silver alginate, DSD and reza bandage at [facility] - by 07/16/23 the facility can remove steristrips and adaptic to access wound for direct cleansing/dressing (prior to that time the adaptic and steri strips should remain intact during dressing changes) 2. Patient will need a follow-up TSH to be done in the next 6 weeks. TSH during his hospitalization was found to be 166 due to patient medication noncompliance. Discharge Orders/Prescriptions Prescriptions: New levofloxacin 500 mg tablet 500 mg PO DAILY Qty: 7 0RF doxycycline hyclate 100 mg capsule 100 mg PO BID Qty: 14 0RF oxycodone 5 mg Tablet 10 mg PO Q4H PRN PRN (Reason: Pain Score 4-10) 1 Days Qty: 6 0RF metoprolol tartrate 25 mg Tablet 25 mg PO BID Qty: 0 0RF Ensure Plus High Protein 0.08 gram-1.5 kcal/mL Liquid 120 ml PO 4X/DAY Qty: 0 0RF Daily Fiber (psyllium-aspart) 3 gram Powder In Packet 1 packet PO DAILY PRN PRN (Reason: Constipation) Qty: 0 0RF Continued clonazepam 2 mg tablet 2 mg PO BID Patient Comments: take 1 tablet by mouth twice a day if needed for anxiety gabapentin 300 mg capsule 300 mg PO TID Patient Comments: TAKE ONE CAPSULE BY MOUTH THREE TIMES DAILY levothyroxine 125 mcg tablet 125 mcg PO DAILY Patient Comments: TAKE ONE TABLET BY MOUTH EVERY DAY Xarelto 20 mg tablet 20 mg PO .HS Patient Comments: TAKE ONE TABLET BY MOUTH EVERY DAY pantoprazole 40 mg tablet,delayed release (DR/EC) 40 mg PO DAILY Referrals / Follow Up: Audie Paz DPM [Med Staff - Active Staff] - See Referral Note (As instructed by Dr. Paz) Griffin Soria Vargas, FOOD SAFETY AUDITOR-C [Primary Care Provider] - Disposition Disposition (needs filled in before D/C Order can be placed): [facility] Facility Charges/Coding Visit Charges Inpatient E&M: 28784 SNF Disch >30 Min
--- NOTE | 2023-07-11 16:19 | NURSING ---
Attempted to obtain final vital signs, pt refused.
== END 2023-07-11 17:11 | DRG 854 ==
LOC: ED 19:29 → MS3 19:56 → PCU 07-05 07:29
PROVIDERS: Family Medicine; Internal Medicine; Internal Medicine Infectious Disease; Podiatrist; Admitting Provider Internal Medicine; Emergency Provider Emergency Medicine; PCP Nurse Practitioner Family; Visit Provider Internal Medicine
PROC: 0JBP0ZZ Excision of Left Lower Leg Subcutaneous Tissue and Fascia, Open Approach (ICD-10-PCS; principal; 2023-07-09 14:30)
DX: A41.9 Sepsis, unspecified organism (principal); M86.171 Other acute osteomyelitis, right ankle and foot; E87.1 Hypo-osmolality and hyponatremia; L03.115 Cellulitis of right lower limb; L03.116 Cellulitis of left lower limb; L97.212 Non-pressure chronic ulcer of right calf with fat layer exposed; L97.222 Non-pressure chronic ulcer of left calf with fat layer exposed; Z59.00 Homelessness unspecified; I48.0 Paroxysmal atrial fibrillation; E86.1 Hypovolemia; F19.11 Other psychoactive substance abuse, in remission; Z93.0 Tracheostomy status; E03.9 Hypothyroidism, unspecified; I87.2 Venous insufficiency (chronic) (peripheral); F17.210 Nicotine dependence, cigarettes, uncomplicated; Z18.11 Retained magnetic metal fragments; R53.81 Other malaise; Z91.199 Patient's noncompliance with other medical treatment and regimen due to unspecified reason; Z22.322 Carrier or suspected carrier of Methicillin resistant Staphylococcus aureus; B95.1 Streptococcus, group B, as the cause of diseases classified elsewhere; B96.5 Pseudomonas (aeruginosa) (mallei) (pseudomallei) as the cause of diseases classified elsewhere; T38.1X6A Underdosing of thyroid hormones and substitutes, initial encounter; Z91.148 Patient's other noncompliance with medication regimen for other reason; Z88.0 Allergy status to penicillin; Z79.01 Long term (current) use of anticoagulants; Z90.02 Acquired absence of larynx; Z85.819 Personal history of malignant neoplasm of unspecified site of lip, oral cavity, and pharynx
CPT/HCPCS: 31720; 36415; 73590; 80048; 80053; 80074; 80076; 80202; 83605; 83735; 84100; 84439; 84443; 85025; 85610; 86703; 87040; 87070; 87075; 87077; 87102; 87149; 87184; 87186; 87205; 87206; 87426; 87640; 93923; 94762; 97161; 97166; 97802; 99285; J7030; J7040; J7050; J7120; A4216; J2405